=== PATIENT | male | born 1945 | race Caucasian/White ===

== ENCOUNTER 2019-10-25 09:06 | Inpatient (IN) | payer MEDICARE, MEDICAID ==
[~2019-10-25] VITALS: Ht 172.7 cm; Wt 82.0 kg
[2019-10-25 10:32] LABS: Basophils # (auto) 0 10 ^3/uL (0-0.2); Basophils % (auto) 0.3 % (0.0-2.0); Eosinophils # (auto) 0 10 ^3/uL (0-0.8); Hematocrit 42.5 % (41.0-53.0); Hemoglobin 13.4 g/dL (13.5-17.5); Lymphocytes # (auto) 1.1 10 ^3/uL (0.4-5.4); Lymphocytes % (auto) 9.8 % (10.0-50.0); Mean Corpuscular Hemoglobin 28.3 pg (28.0-32.0); Mean Corpuscular Hgb Conc. 31.5 g/dL (32.0-36.0); Mean Corpuscular Volume 89.9 fL (80.0-100.0); Monocytes # (auto) 0.6 10 ^3/uL (0-1.3); Monocytes % (auto) 5.4 % (0.0-12.0); Neutrophils # (auto) 9.8 10 ^3/uL (1.6-8.6); Neutrophils % (auto) 84.5 % (37.0-80.0); Nucleated Red Blood Cells % 0.2 %; Platelet Count (auto) 235 10^3/uL (140-450); Red Blood Cells 4.73 10^6/uL (4.5-5.90); Red Cell Distribution Width 15.7 % (11.8-14.3); White Blood Cell 11.6 10^3/uL (4.4-10.8)
[2019-10-25] MEDS ORDERED: SODIUM CHLORIDE 0.9% 1,000 ML IVB ONE (10:33)
[2019-10-25] MEDS ORDERED: SODIUM CHLORIDE 0.9% 1,000 ML IV ONE (10:33)
[2019-10-25] MEDS ORDERED: DOXYCYCLINE 100MG/250ML 250 ML IV ONE (10:45)
[2019-10-25] MEDS ORDERED: DexAMETHasone SOD PHOS 4 MG/1ML SDV INJ IV ONE (10:45)
[2019-10-25] MEDS ORDERED: cefTRIAXone 1GM/50ML D5W 50 ML IV ONE (10:45)
[2019-10-25 10:49] LABS: INR 1.04 (0.9-1.15); Partial Thromboplastin Time 29.3 sec (23.64-32.05)
[2019-10-25 11:22] LABS: Potassium 4.7 mmol/L (3.5-5.1)
[2019-10-25 11:23] LABS: Urine Amorphous Crystal FEW /hpf (None Seen); Urine Bacteria NONE SEEN /hpf (None Seen); Urine Blood 2+ /uL (Negative); Urine WBC 21 /hpf (0 - 3)
[2019-10-25 11:36] LABS: Albumin 1.9 g/dL (3.4-5.0); BUN/Creatinine Ratio 22.3; Bilirubin, Total 0.4 mg/dL (0.2-1.0); Calcium 8.2 mg/dL (8.5-10.1); Total Protein 7.4 g/dL (6.4-8.2)
[2019-10-25] MEDS ORDERED: ENOXAPARIN SOD 60 MG/0.6 ML SYRINGE SC ONE (13:45)
[2019-10-25] MEDS ORDERED: NITROGLYCERIN 0.4 MG SL TAB SL PRN (15:45)
[2019-10-25] MEDS ORDERED: MORPHINE SULF INJ 2 MG/ML SYRINGE 1ML IV PRN (15:45)
[2019-10-25] MEDS ORDERED: ONDANSETRON HCL 4 MG/2 ML VIAL IV PRN (15:45)
[2019-10-25] MEDS: SODIUM CHLORIDE 0.9% 1,000 ML IV SCH (16:17)
[2019-10-25] MEDS ORDERED: AMIODARONE 450mg/250ml AE 250 ML IV SCH (17:40)
[2019-10-25] MEDS ORDERED: ENOXAPARIN SOD 40 MG/0.4 ML SYRINGE SC ONE (19:00)
[2019-10-25] MEDS: PIPERACILLIN-TAZOB 3.375GM 100 ML IV SCH (19:00)
[2019-10-25] MEDS ORDERED: INSLANTI SC (19:49)
[2019-10-25] MEDS ORDERED: CARB25TA75 PO (19:49)
[2019-10-25] MEDS ORDERED: INSU70IN3 SC (19:49)
[2019-10-25] MEDS ORDERED: SELE5TAB4 PO (19:49)
[2019-10-25] MEDS ORDERED: PANT40T PO (19:49)
[2019-10-25] MEDS ORDERED: SIMV-8 PO (19:49)
[2019-10-25] MEDS ORDERED: INSU100I49 SC (19:49)
[2019-10-25] MEDS ORDERED: LISI-275 PO (19:49)
[2019-10-25] MEDS ORDERED: METO25TA93 PO (19:49)
[2019-10-25] MEDS ORDERED: GLIP10TA16 PO (19:49)
[2019-10-26] VITALS (66 sets, daily range): BP systolic 113–141; BP diastolic 50–88
[2019-10-26] MEDS: PIPERACILLIN-TAZOB 3.375GM 100 ML IV SCH ×4 (00:49→18:34)
[2019-10-26] MEDS: AMIODARONE 450mg/250ml AE 250 ML IV SCH ×2 (01:06→16:08)
--- NOTE | 2019-10-26 03:30 | NUR ---
Arrival Note Received pt from ER via gurney. Transferred to bed with full assist. Pt on non rebreather at 15lpm. Saturations at 96%. COVID positive. All isolation precautions in place. Pt alert and oriented times 2-3. SOB noted. Full assessment done, see interventions. Pt infusing amio gtt at .5mg/min. NSR noted on bedside monitor. Blanchable redness noted to sacrum, optifoam in place. Two small open pressure areas noted on right buttocks. Pictures taken and optifoam placed over with barrier cream. Call light within reach. Pt in full view of RN. Unable to obtain most admission assessment as pt confused.
--- NOTE | 2019-10-26 07:24 | NUR ---
Report given to BRIANNA Puri to assume care
--- NOTE | 2019-10-26 07:25 | NUR ---
REPORT REPORT RECEIVED FROM FRANCESCA RNJONAH. CHECKED ON PT THROUGH THE SLIDING GLASS DOORS. PT IS IN ISOLATION FOR + COVID. CURRENTLY ON NRB MASK AT 15 L/M WITH VSS. CONTINUE TO MONITOR.
[2019-10-26 08:24] LABS: Basophils # (auto) 0 10 ^3/uL (0-0.2); Basophils % (auto) 0.1 % (0.0-2.0); Eosinophils # (auto) 0 10 ^3/uL (0-0.8); Hematocrit 38.9 % (41.0-53.0); Hemoglobin 12.3 g/dL (13.5-17.5); Lymphocytes # (auto) 0.5 10 ^3/uL (0.4-5.4); Lymphocytes % (auto) 2.6 % (10.0-50.0); Mean Corpuscular Hemoglobin 28.6 pg (28.0-32.0); Mean Corpuscular Hgb Conc. 31.7 g/dL (32.0-36.0); Mean Corpuscular Volume 90.3 fL (80.0-100.0); Monocytes # (auto) 0.4 10 ^3/uL (0-1.3); Monocytes % (auto) 2.5 % (0.0-12.0); Neutrophils # (auto) 17.4 10 ^3/uL (1.6-8.6); Neutrophils % (auto) 94.8 % (37.0-80.0); Platelet Count (auto) 224 10^3/uL (140-450); Red Blood Cells 4.31 10^6/uL (4.5-5.90); Red Cell Distribution Width 15.6 % (11.8-14.3); White Blood Cell 18.3 10^3/uL (4.4-10.8)
--- NOTE | 2019-10-26 08:35 | NUR ---
ASSESSMENT PT IN ISOLATION FOR + COVID. PT RESTING IN BED, OPENS EYES TO NAME. A/O TO PERSON, AND "IN THE [place]". ABLE TO FOLLOW SOME SIMPLE COMMANDS. 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 LUNGS CLEAR AND VERY DIMINISHED THROUGHOUT. O2 AT 15 L VIA NRB MASK WITH O2 SAT OF 94% AND RR 31. PT STATES HE DOES NOT FEEL SOB. TELE SR 73. PALPABLE PULSES TO ALL EXTREMITIES. SCDS APPLIED TO BLE. PT WITH BLANCHABLE REDNESS NOTED TO LEFT HEEL AND RIGHT OUTER ANKLE, ALSO TO SACRUM AND RIGHT BUTTOCK WITH 2 SMALL OPEN AREAS TO RIGHT INNER BUTTOCK. OPTIFOAM DRESSING IN PLACE TO SACRUM AND RIGHT BUTTOCK. PT TURNED FOR COMFORT. IVF TO RIGHT HAND AND UPPER RIGHT FOREARM IVS, #20S AND SITES BENIGN. BED IN LOW POSITION , RAILS UP X4 AND BED ALARM ON FOR PT SAFETY. CONTINUE TO MONITOR.
[2019-10-26 08:48] LABS: Albumin 1.7 g/dL (3.4-5.0); Calcium 8.1 mg/dL (8.5-10.1); Potassium 4.8 mmol/L (3.5-5.1)
[2019-10-26 08:53] LABS: BUN/Creatinine Ratio 24.8; Total Protein 6.7 g/dL (6.4-8.2)
[2019-10-26 09:08] LABS: Bilirubin, Total 0.4 mg/dL (0.2-1.0)
--- NOTE | 2019-10-26 09:28 | NUR ---
FAMILY/PHONE RECEIVED A PHONE CALL FROM PT'S DAUGHTER, CONSUELO. AFTER VERIFYING PASSWORD, [id number], I UPDATED HER ON THE PT'S CURRENT CONDITION , PO, AND ANSWERED HER QUESTIONS. OBTAINED HER PHONE NUMBER AND WILL ASK MD Ramos CALL HER.
--- NOTE | 2019-10-26 11:14 | NUR ---
WOUND CARE NOTE: Wound care in to see patient per wound care request regarding multiple skin integrity issue that are noted present on admission. Bedside nurse took photograph of patient's wounds upon admission for reference. Patient is 74 years old male admitted for Sepsis, Poss CoVid. Patient is resting in ICU bed in Rm. 106. Patient is awake, alert and able to follow direction. Patient is in no stated pain at this time,however mild pain upon turning using [place] Faces pain Scale. He needs assistance in turning and repositioning and his Fabián score is 12. Skin/wound assessment done with the assistance of patient's nurse, BRIANNA Puri. Two small (0.5x0.5cm) open partial thickness wounds noted to patient's Rt buttock, sacral has slow to therese redness. Wounds are consistent with Stage 2 pressure injuries. Patient is incontinent and passed moderate amount of pasty stools, kirsten care given, applied Z Guard cream and covered sacrum with Opti foam gentle dressing. Patient's Lt heel noted with dry peeling skin and slow to therese redness (Stage 1 pressure injury). Dry scabbed abrasions noted to his L milton, L medial ankle and Rt. lateral ankle; area is clean and dry, left open to air. Patient tolerated, repositioned patient for comfort facing his Rt side, re distributed pressure points with pillows. BRIANNA Puri at bedside. RECOMMENDATION: Nursing to continue with BID/PRN cleaning and application of Z Guard cream to sacral, buttocks per MD order, Dietary consult, frequent turning and repositioning schedule as condition permits, redistribute pressure points with pillows,frequent kirsten care/check, keep clean and dry, elevate heels on pillows, continue monitoring by wound care while patient is hospitalized. Addendum: 10/26/19 at 1457 by Dianne Redd RN Amended: Links added.
[2019-10-26] MEDS: DexAMETHasone SOD PHOS 4 MG/1ML SDV INJ IV SCH (12:21)
--- NOTE | 2019-10-26 14:30 | NUR ---
REPOSITIONED PT TO HIS RIGHT SIDE. WAS INCONTINENT OF MODERATE AMOUNT OF SOFT BROWN BM. JAZZ CARE GIVEN , Z GUARD CREAM APPLIED TO SCROTUM AND BUTTOCKS. PT DOES NOT WANT TO EAT AT THIS TIME. BED ALARM ON FOR PT SAFETY.CONTINUE TO MONITOR.
--- NOTE | 2019-10-26 15:55 | NUR ---
AXILLARY TEMP OF 100.6. APPLIED ICE PACKS UNDER BOTH ARMS.
--- NOTE | 2019-10-26 16:00 | NUR ---
TURNED PT TO HIS LEFT SIDE. PT NOW ON HI FLOW O2 AT 70% FIO2 AND 45 L FLOW. [id number]%. CONTINUE TO MONITOR. Addendum: 10/26/19 at 1618 by Khushi Kahn RN AXILLARY TEMP OF 100.6. APPLIED ICE PACKS UNDER BOTH ARMS. WILL NOTIFY TO SEE IF HE WANTS ANY TYLENOL OR CULTURES.
[2019-10-26] MEDS: SODIUM CHLORIDE 0.9% 1,000 ML IV SCH ×2 (16:45→18:34)
--- NOTE | 2019-10-26 18:30 | NUR ---
PT WITH ORAL TEMP OF 99.9. ICE PACKS REMAIN IN PLACE UNDER ARMS. NO RETURN CALL FROM DR SANTILLAN REGARDING TEMPERATURE..
--- NOTE | 2019-10-26 19:17 | NUR ---
REPORT REPORT GIVEN TO JONAH MA RN.
--- NOTE | 2019-10-26 19:30 | NUR ---
Opening shift note Received pt on high flow on 45l and 70% FIO2. Full assessment done, see interventions. Patient alert and oriented times three. Pt states he isn't having any pain but will express pain when touched. Skin assessment done, see interventions. Pt in full view of RN.
--- NOTE | 2019-10-26 19:30 | NUR ---
RECEIVED PHONE ORDER FOR TYLENOL PRN AND CULTURES FOR ELEVATED TEMP. ORDERS PLACED AND NOTIFIED NIGHT JONAH REED.
[2019-10-26] MEDS: ENOXAPARIN SOD 80 MG/0.8ML SYRINGE SC SCH (22:00)
[2019-10-27] VITALS (61 sets, daily range): BP systolic 115–170; BP diastolic 49–119
[2019-10-27] MEDS: MEROPENEM 1GM IVPB 100 ML IV SCH ×2 (04:16→15:37)
[2019-10-27 04:51] LABS: Basophils # (auto) 0 10 ^3/uL (0-0.2); Eosinophils # (auto) 0 10 ^3/uL (0-0.8); Hematocrit 40.5 % (41.0-53.0); Hemoglobin 12.6 g/dL (13.5-17.5); Lymphocytes # (auto) 0.4 10 ^3/uL (0.4-5.4); Lymphocytes % (auto) 2.3 % (10.0-50.0); Mean Corpuscular Hemoglobin 28.2 pg (28.0-32.0); Mean Corpuscular Volume 91.1 fL (80.0-100.0); Monocytes # (auto) 0.4 10 ^3/uL (0-1.3); Monocytes % (auto) 2.7 % (0.0-12.0); Neutrophils # (auto) 15.1 10 ^3/uL (1.6-8.6); Platelet Count (auto) 235 10^3/uL (140-450); Red Blood Cells 4.45 10^6/uL (4.5-5.90); Red Cell Distribution Width 15.4 % (11.8-14.3)
[2019-10-27 05:32] LABS: Calcium 8.5 mg/dL (8.5-10.1)
[2019-10-27 05:38] LABS: Albumin 1.7 g/dL (3.4-5.0); BUN/Creatinine Ratio 24.5; Bilirubin, Total 0.4 mg/dL (0.2-1.0); Total Protein 6.8 g/dL (6.4-8.2)
--- NOTE | 2019-10-27 05:56 | NUR ---
Left message with Dr. Lares regarding blood sugar. Awaiting call back
[2019-10-27] MEDS ORDERED: INSULIN LANTUS (GLARGINE) 1 /0.01ml (100units/ml) SC ONE ×2 (08:15→08:24)
[2019-10-27] MEDS ORDERED: DEXTROSE (50%) 50ML SYRG IV PRN (08:15)
[2019-10-27] MEDS: AMIODARONE 450mg/250ml AE 250 ML IV SCH ×2 (08:20→20:40)
--- NOTE | 2019-10-27 09:00 | NUR ---
DR. AGUILAR Provider/Hospitalist at bedside.
[2019-10-27] MEDS: SODIUM CHLORIDE 0.9% 1,000 ML IV SCH ×2 (10:00→17:45)
--- NOTE | 2019-10-27 10:30 | NUR ---
Respiratory note: TITRATED FIO2 TO 60%, BRIANNA BARRON.
[2019-10-27] MEDS: DexAMETHasone SOD PHOS 4 MG/1ML SDV INJ IV SCH (10:33)
--- NOTE | 2019-10-27 10:35 | NUR ---
DR. SANTILLAN Provider/Hospitalist at bedside.
[2019-10-27] MEDS: ACCU-CHEK COMFORT CURVE STRIP VI SCH ×3 (11:30→22:00)
--- NOTE | 2019-10-27 11:30 | NUR ---
ACCUCHECK DONE AND BS-431. REPEATED RIGHT AWAY WITH BS-443. GAVE PT. REGULAR INSULIN 20 UNITS SQ PER AGGRESSIVE SLIDING SCALE ORDERED.
[2019-10-27] MEDS: InsuLIN REG 1unit/0.01ml Soln (100units/ml) SC SCH ×3 (11:39→22:55)
[2019-10-27 12:51] LABS: Calcium 8.7 mg/dL (8.5-10.1); Potassium 4.7 mmol/L (3.5-5.1)
[2019-10-27 12:53] LABS: BUN/Creatinine Ratio 25.1
--- NOTE | 2019-10-27 16:00 | NUR ---
PT. HAS BEEN RESTING WITH EYES CLOSED. NO SIGNS OF DISTRESS OR DISCOMFORT.
--- NOTE | 2019-10-27 19:50 | NUR ---
PAGEYadira CURRY REGARDING HIGH BLOOD PLEASURE SYSTOLIC BLOOD PLEASURE GOES ABOVE 150'S PT TAKING BP MEDICATIONS AT HOME
--- NOTE | 2019-10-27 20:00 | NUR ---
CORRECTION IN TITLE PAGED REGARDING HIGH BLOOD *PRESSURE
--- NOTE | 2019-10-27 20:30 | NUR ---
COOLING MEASURES - TEMP 100.4 ICE PACKS BILATERAL AXILLA TYLENOL
--- NOTE | 2019-10-27 20:40 | NUR ---
HOLDING AMIODARONE PER REPORT PER DAY SHIFT RN AMIODARONE WAS STOPPED AT 1000
[2019-10-27] MEDS: ACETAMINOPHEN 500 MG TAB PO PRN (20:56)
--- NOTE | 2019-10-27 21:22 | NUR ---
CARES PT HAD SMALL SOFT BOWEL MOVEMENT, PARTIAL BED LINEN CHANGE, APPLIED OPTIFOAM TO HEELS BILATERALLY
[2019-10-27] MEDS: ENOXAPARIN SOD 80 MG/0.8ML SYRINGE SC SCH (22:00)
[2019-10-27] MEDS: MORPHINE SULF INJ 2 MG/ML SYRINGE 1ML IV PRN (23:43)
--- NOTE | 2019-10-27 23:59 | NUR ---
INSERTED SECOND IV IV access obtained, via clean sterile technique by inserting 22 gauge catheter at LEFT HAND after 2 attempt(s). IV secured properly. No trauma to site. Patient tolerated well.
[2019-10-28] VITALS (40 sets, daily range): BP systolic 123–173; BP diastolic 56–110
--- NOTE | 2019-10-28 04:10 | NUR ---
CARES FULL BED LINEN CHANGE, PARTIAL BED BATH. OPTIFOAM APPLIED TO SACRAL AREA.
[2019-10-28] MEDS: MEROPENEM 1GM IVPB 100 ML IV SCH ×2 (04:19→15:46)
[2019-10-28] MEDS: SODIUM CHLORIDE 0.9% 1,000 ML IV SCH ×2 (04:20→17:30)
[2019-10-28 04:58] LABS: Alanine Aminotransferase 9 U/L (16-61); Albumin 1.5 g/dL (3.4-5.0); Anion Gap 6 (5-15); Aspartate Aminotransferase 21 U/L (15-37); BUN/Creatinine Ratio 30.7; Blood Urea Nitrogen 50 mg/dL (7-18); Calcium 8.6 mg/dL (8.5-10.1); Carbon Dioxide 21 mmol/L (21-32); Chloride 122 mmol/L (98-107); GFR African American 53 mL/min; GFR Non-African American 44 mL/min; Glucose 193 mg/dL (74-106); Potassium 4.7 mmol/L (3.5-5.1); Sodium 149 mmol/L (136-145)
[2019-10-28 05:01] LABS: Alkaline Phosphatase 57 U/L (45-117); Bilirubin, Total 0.2 mg/dL (0.2-1.0); Total Protein 6.8 g/dL (6.4-8.2)
[2019-10-28] MEDS: InsuLIN REG 1unit/0.01ml Soln (100units/ml) SC SCH ×4 (06:05→21:45)
[2019-10-28] MEDS: ACCU-CHEK COMFORT CURVE STRIP VI SCH ×4 (06:19→22:09)
--- NOTE | 2019-10-28 08:08 | NUR ---
PT. PULLED OFF HI FLOW, O2 SATS DECREASED TO 76% WITH GOOD PLETH. RR 20'S. POLLY, RT CAME IN RM. TO SEE PT., PLACED HI FLOW 45 LITERS BACK ON PT. AND INCREASED FIO2-80% FROM 70%. TOOK SEVERAL MINUTES FOR O2 SATS TO INCREASE TO LOW 90'S. REINFORCED TO PT. IMPORTANCE OF LEAVING 02 ON. PLACED MITTEN ON RT. HAND, NOT TIED TO PREVENT PULLING OF TUBING.
[2019-10-28] MEDS: DexAMETHasone SOD PHOS 4 MG/1ML SDV INJ IV SCH (10:15)
[2019-10-28] MEDS: AMIODARONE 450mg/250ml AE 250 ML IV SCH (10:15)
--- NOTE | 2019-10-28 10:53 | NUR ---
Nutrition Assessment Notes please see attached link for complete assessment Est energy needs BW 81 [id number] kcal (23-25 kcal/kg BW) Est protein 65-81g (0.8-1.0g/kg elevated RFTs) Will reassess prn. Addendum: 10/28/19 at [address] Amended: Links added.
[2019-10-28 11:21] LABS: Basophils # (auto) 0 10 ^3/uL (0-0.2); Basophils % (auto) 0.2 % (0.0-2.0); Eosinophils # (auto) 0 10 ^3/uL (0-0.8); Hematocrit 39.8 % (41.0-53.0); Hemoglobin 12.5 g/dL (13.5-17.5); Lymphocytes # (auto) 0.4 10 ^3/uL (0.4-5.4); Lymphocytes % (auto) 2.7 % (10.0-50.0); Mean Corpuscular Hgb Conc. 31.3 g/dL (32.0-36.0); Mean Corpuscular Volume 89.4 fL (80.0-100.0); Monocytes # (auto) 0.8 10 ^3/uL (0-1.3); Monocytes % (auto) 5.2 % (0.0-12.0); Neutrophils # (auto) 13.6 10 ^3/uL (1.6-8.6); Neutrophils % (auto) 91.9 % (37.0-80.0); Platelet Count (auto) 269 10^3/uL (140-450); Red Blood Cells 4.46 10^6/uL (4.5-5.90); Red Cell Distribution Width 15.3 % (11.8-14.3); White Blood Cell 14.8 10^3/uL (4.4-10.8)
--- NOTE | 2019-10-28 12:15 | NUR ---
POLLY RT DECREASED FIO2 ON HI FLOW TO 75%. O2 SATS MID 90'S. NO SIGNS OF RESP. DISTRESS.
--- NOTE | 2019-10-28 14:25 | NUR ---
DR. KAHN Provider/Hospitalist at bedside. NEW ORDERS RECEIVED.
--- NOTE | 2019-10-28 17:00 | NUR ---
PT. RESTING WITH EYES CLOSED. NO SIGNS OF DISTRESS OR DISCOMFORT.
--- NOTE | 2019-10-28 20:00 | NUR ---
OPENING NOTE PT IS ON HIGH FLOW NC, RR 28, SPO2 88%, BREATHING THROUGH HIS MOUTH, INSTRUCTED PT TO BREATH THROUGH NOSE. PT IS ALERT TO HIMSELF, PLACE AND YEAR, REPORTS GENERALIZED PAIN. PT IS SINUS TACHY WITH PVC'S, TEMP 99.5, WILL APPLY COOLING MEASURES. WILL ENCOURAGE PT DO DRINK ONE CUP OF WATER EVERY TWO HOURS TOLERATED. DEAN DRAINING DOWN THE GRAVITY, FREE OF KINKS. BED RAILS ARE UP X4 FOR SAFETY, BED IN LOWEST POSITION. CALL LIGHT WITHIN REACH INSTRUCTED ON HOW TO USE IT, PT DEMONSTRATED ON HOW TO USE IT WITH HIS RIGHT HAND. LEFT ARM IS EXTREMELY WEEK WITH MINIMUM TO NO MOVEMENT. PT IS IN ISO ROOM FOR COVID. WILL MONITOR PT EVERY 15 MIN AND NEEDED.
--- NOTE | 2019-10-28 20:06 | NUR ---
SPOKE WITH FAMILY SPOKE WITH SABRINA MARTINEZ (BROTHER IN LAW), PROVIDED PASSWORD, UPDATED ON PATIENTS STATUS AND POC, ALL QUESTIONS AND CONCERNS ADDRESSED.
--- NOTE | 2019-10-28 20:22 | NUR ---
COOLING MEASURES TEMP 99.5 AX APPLIED ICE BACK BEHIND NECK TURN ON FAN
[2019-10-28] MEDS: ENOXAPARIN SOD 80 MG/0.8ML SYRINGE SC SCH (22:09)
[2019-10-28] MEDS: MORPHINE SULF INJ 2 MG/ML SYRINGE 1ML IV PRN (22:19)
[2019-10-29] VITALS (30 sets, daily range): BP systolic 131–183; BP diastolic 51–103
--- NOTE | 2019-10-29 01:00 | NUR ---
PAGED REGARDING HIGH NA AND BP CALLED BACK RECEIVED NEW ORDERS
[2019-10-29] MEDS: D5W/SOD CHL 0.45% 1,000 ML IV SCH ×2 (01:15→16:41)
[2019-10-29] MEDS ORDERED: LISINOPRIL 20 MG TAB PO ONE (01:15)
--- NOTE | 2019-10-29 03:20 | NUR ---
PATIENT REFUSING CARES REFUSING BED LINEN CHANGE, USES FOUL LANGUAGE. WAS ABLE TO CHANGE PILLOW CASES.
--- NOTE | 2019-10-29 03:50 | NUR ---
PAGED RT PATIENT DESATURATING TO SPO2 86% LUNG SOUNDS: COARSE, WHEEZING BREATHING THROUGH THE MOUTH
[2019-10-29] MEDS: MEROPENEM 1GM IVPB 100 ML IV SCH ×2 (04:26→16:56)
[2019-10-29 04:28] LABS: Basophils # (auto) 0 10 ^3/uL (0-0.2); Basophils % (auto) 0.1 % (0.0-2.0); Eosinophils # (auto) 0 10 ^3/uL (0-0.8); Hematocrit 39.7 % (41.0-53.0); Hemoglobin 12.4 g/dL (13.5-17.5); Lymphocytes # (auto) 0.5 10 ^3/uL (0.4-5.4); Lymphocytes % (auto) 4.1 % (10.0-50.0); Mean Corpuscular Hemoglobin 28.4 pg (28.0-32.0); Mean Corpuscular Hgb Conc. 31.3 g/dL (32.0-36.0); Mean Corpuscular Volume 90.5 fL (80.0-100.0); Neutrophils # (auto) 11.4 10 ^3/uL (1.6-8.6); Neutrophils % (auto) 87.8 % (37.0-80.0); Nucleated Red Blood Cells % 0.1 %; Platelet Count (auto) 278 10^3/uL (140-450); Red Blood Cells 4.39 10^6/uL (4.5-5.90); Red Cell Distribution Width 15.4 % (11.8-14.3); White Blood Cell 12.9 10^3/uL (4.4-10.8)
[2019-10-29 04:45] LABS: Albumin 1.6 g/dL (3.4-5.0); Calcium 8.5 mg/dL (8.5-10.1); Potassium 4.6 mmol/L (3.5-5.1)
[2019-10-29 04:48] LABS: Bilirubin, Total 0.3 mg/dL (0.2-1.0); Total Protein 6.7 g/dL (6.4-8.2)
--- NOTE | 2019-10-29 04:50 | NUR ---
UNABLE TO MAKE CONTACT WITH 'S FOR PATIENTS HIGH BP AND ELEVATED SODIUM JACQUE'S OFFICE IS CLOSED, NO ANSWER, LEFT MESSAGE NO CONTACT FOR WYATT PEREZ MD, [employer] DOES NOT HAVE CONTACT Addendum: 10/29/19 at 0739 by SALENA DIAZ RN RN ADDITIONAL INFORMATION: REPLACED BY [facility] [employer] DOES NOT HAVE WYATT CURRY CONTACT INFORMATION
[2019-10-29] MEDS: MORPHINE SULF INJ 2 MG/ML SYRINGE 1ML IV PRN ×3 (05:00→22:42)
[2019-10-29] MEDS: InsuLIN REG 1unit/0.01ml Soln (100units/ml) SC SCH ×4 (05:52→22:00)
[2019-10-29] MEDS: ACCU-CHEK COMFORT CURVE STRIP VI SCH ×4 (06:23→22:00)
--- NOTE | 2019-10-29 07:00 | NUR ---
PAGED JACQUE MORGAN MD REGARDING HIGH BP AND HIGH Na LEFT MESSAGE TO CABLE ASSEMBLER AT JACQUE'S OFFICE
--- NOTE | 2019-10-29 08:15 | NUR ---
INITIAL ASSESSMENT: Patient agitated moving around in bed, hi-juan cannula out of nose due to trashing of head. Patient states that he is uncomfortable and in pain, pain is generalized 8/10. Partial linen change provided, patient repositioned and to be medicated for pain as per orders. Current hi-juan settings 45L and 75% FiO2. Assessments completed and documented in appropriate flow sheets.
[2019-10-29] MEDS: LISINOPRIL 20 MG TAB PO SCH (12:00)
[2019-10-29] MEDS: DexAMETHasone SOD PHOS 4 MG/1ML SDV INJ IV SCH (12:00)
--- NOTE | 2019-10-29 19:40 | NUR ---
PAGED DR SANTILLAN REGARDING HIGH BLOOD PRESSURE, HIGH BLOOD SUGAR AND SODIUM LEVELS.
--- NOTE | 2019-10-29 19:55 | NUR ---
DR. SANTILLAN CALLED BACK RECEIVED NEW ORDERS CONSULTING DR. ELLER (NEPHRO)
[2019-10-29] MEDS: SOD CHL 0.45% 1,000 ML IV SCH (22:20)
[2019-10-29] MEDS: hydrALAZINE HCL 20 MG/ML VL IV PRN (22:32)
[2019-10-29] MEDS: ENOXAPARIN SOD 80 MG/0.8ML SYRINGE SC SCH (22:48)
--- NOTE | 2019-10-29 23:00 | NUR ---
IV removal IV DC'd with clean sterile technique, catheter fully intact. Pressure dressing applied to site. Patient tolerated well. REMOVED 20G FROM LEFT ARM.
--- NOTE | 2019-10-29 23:10 | NUR ---
IV insertion IV access obtained, via clean sterile technique by inserting gauge catheter at 22 after 1 attempt. IV secured properly. No trauma to site. Patient tolerated well.
[2019-10-30] VITALS (20 sets, daily range): BP systolic 125–167; BP diastolic 67–92
--- NOTE | 2019-10-30 | NUR ---
CARES PARTIAL BED LINEN CHANGE, PARTIAL BED BATH
--- NOTE | 2019-10-30 00:05 | NUR ---
PT REMOVING HIGH FLOW NC PLACED IT BACK ON EDUCATED PATIENT NOT TO REMOVED, PT VERBALIZED UNDERSTANDING. PT TOSSING IN BED.
[2019-10-30] MEDS: MORPHINE SULF INJ 2 MG/ML SYRINGE 1ML IV PRN ×2 (03:12→08:52)
[2019-10-30] MEDS: MEROPENEM 1GM IVPB 100 ML IV SCH ×2 (03:41→15:44)
--- NOTE | 2019-10-30 04:20 | NUR ---
PLACED MITTEN BACK ON RIGHT ARM PT KEEPS TAKING OFF HIGH FLOW NC, DESATURATES LOW 70%, PT WAS EDUCATED MULTIPLE TIMES NOT TO TAKE IT OFF, PT VERBALIZED UNDERSTANDING BUT KEEP ON TAKING IT OFF, MITTEN WAS PLACED ON RIGHT HAND.
[2019-10-30] MEDS: hydrALAZINE HCL 20 MG/ML VL IV PRN (06:10)
[2019-10-30] MEDS: ACCU-CHEK COMFORT CURVE STRIP VI SCH ×4 (06:10→22:00)
[2019-10-30] MEDS: InsuLIN REG 1unit/0.01ml Soln (100units/ml) SC SCH ×4 (06:11→23:19)
[2019-10-30 07:30] LABS: Basophils # (auto) 0 10 ^3/uL (0-0.2); Basophils % (auto) 0.3 % (0.0-2.0); Eosinophils # (auto) 0 10 ^3/uL (0-0.8); Hematocrit 41.8 % (41.0-53.0); Hemoglobin 13.2 g/dL (13.5-17.5); Lymphocytes # (auto) 0.7 10 ^3/uL (0.4-5.4); Lymphocytes % (auto) 5.7 % (10.0-50.0); Mean Corpuscular Hemoglobin 28.3 pg (28.0-32.0); Mean Corpuscular Hgb Conc. 31.7 g/dL (32.0-36.0); Mean Corpuscular Volume 89.5 fL (80.0-100.0); Monocytes # (auto) 1.2 10 ^3/uL (0-1.3); Monocytes % (auto) 9.8 % (0.0-12.0); Neutrophils # (auto) 10.3 10 ^3/uL (1.6-8.6); Neutrophils % (auto) 84.2 % (37.0-80.0); Platelet Count (auto) 257 10^3/uL (140-450); Red Blood Cells 4.67 10^6/uL (4.5-5.90); Red Cell Distribution Width 15.1 % (11.8-14.3); White Blood Cell 12.2 10^3/uL (4.4-10.8)
[2019-10-30 07:52] LABS: Potassium 4.1 mmol/L (3.5-5.1)
[2019-10-30 07:54] LABS: BUN/Creatinine Ratio 30.9
[2019-10-30] MEDS: SOD CHL 0.45% 1,000 ML IV SCH (08:51)
[2019-10-30] MEDS: LISINOPRIL 20 MG TAB PO SCH (08:51)
[2019-10-30] MEDS: DexAMETHasone SOD PHOS 4 MG/1ML SDV INJ IV SCH (08:51)
--- NOTE | 2019-10-30 10:20 | NUR ---
DR. MOORE AT BEDSIDE NO NEW ORDERS RECEIVED. UPDATED MD ON PT'S CURRENT STATUS,LABS AND POC FOR TODAY. CONTINUE CARE.
--- NOTE | 2019-10-30 10:57 | NUR ---
OXYGENATION R.T. JULIETTE, INCREASED HIGH FLOW TO 50 LITERS OF O2 AT 80% FIO2 AT THIS TIME. CURRENT O2 SATS NOW 91-93%. CONTINUE CARE.
--- NOTE | 2019-10-30 14:42 | NUR ---
Respiratory note: TITRATED FIO2 TO 60% AND FLOW TO 5L. PT SITTING UP IN BED AND TOLERATING WELL. RN NOTIFY OF CHANGE.
--- NOTE | 2019-10-30 16:57 | NUR ---
DR. MCKEON AT BEDSIDE: ORDERS MD UPDATED ON PT'S CURRENT STATUS, OXYGEN REQUIREMENTS AT THIS TIME AND CURRENT POC. ORDERS TO BE GIVEN AND WILL BE CARRIED OUT. CONTINUE CARE.
[2019-10-30] MEDS: ENOXAPARIN SOD 80 MG/0.8ML SYRINGE SC SCH (22:00)
[2019-10-30] MEDS: AMIODARONE HCL 200 MG TAB PO SCH (22:00)
[2019-10-31] VITALS (22 sets, daily range): BP systolic 116–174; BP diastolic 55–100
--- NOTE | 2019-10-31 02:25 | NUR ---
Respiratory note: INCREASED FIO2 TO 85%, 55L. RN INFORMED
[2019-10-31] MEDS: MEROPENEM 1GM IVPB 100 ML IV SCH ×3 (04:00→21:15)
[2019-10-31 05:36] LABS: Albumin 1.8 g/dL (3.4-5.0); Calcium 8.9 mg/dL (8.5-10.1); Potassium 4.1 mmol/L (3.5-5.1)
[2019-10-31 05:39] LABS: BUN/Creatinine Ratio 31.5; Bilirubin, Total 0.5 mg/dL (0.2-1.0); Total Protein 6.3 g/dL (6.4-8.2)
[2019-10-31] MEDS: InsuLIN REG 1unit/0.01ml Soln (100units/ml) SC SCH ×4 (06:13→21:37)
[2019-10-31] MEDS: SOD CHL 0.45% 1,000 ML IV SCH (06:13)
[2019-10-31] MEDS: ACCU-CHEK COMFORT CURVE STRIP VI SCH ×4 (06:14→21:54)
--- NOTE | 2019-10-31 06:20 | NUR ---
Respiratory note: INCREASED FIO2 TO 100%,RN INFORMED.
--- NOTE | 2019-10-31 07:17 | NUR ---
REPORT RECEIVED FROM [employer] RN
[2019-10-31 09:26] LABS: Protein, Urine 243.1 mg/dL (0.0-11.9)
[2019-10-31 09:29] LABS: INR 1.26 (0.9-1.15); Partial Thromboplastin Time 28.4 sec (23.64-32.05)
--- NOTE | 2019-10-31 09:45 | NUR ---
ORAL MEDICATIONS ATTEMPTED TO GIVE PATIENT ORAL MEDICATIONS. PATIENT COUGHED UPON ADMINISTRATION, PATIENT SUCTIONED OF RESIDUAL ORAL MEDICATIONS. WILL NOTIFY
[2019-10-31] MEDS: LISINOPRIL 20 MG TAB PO SCH (10:00)
[2019-10-31] MEDS: AMIODARONE HCL 200 MG TAB PO SCH ×2 (10:00→21:54)
[2019-10-31] MEDS: D5W 5% 1,000 ML IV SCH (10:03)
[2019-10-31] MEDS: DexAMETHasone SOD PHOS 4 MG/1ML SDV INJ IV SCH (10:27)
--- NOTE | 2019-10-31 11:08 | NUR ---
FAMILY DAUGHTER UPDATED ON PATIENT STATUS. ALL QUESTION AND CONCERNS ADDRESSED AT [facility]
--- NOTE | 2019-10-31 11:49 | NUR ---
MITTEN REMOVED FROM RIGHT ARM
--- NOTE | 2019-10-31 14:57 | NUR ---
DR. ROBLES AT BEDSIDE
--- NOTE | 2019-10-31 15:24 | NUR ---
Nutrition Followup Notes Pt wt is 112.0 kg Pt was sleeping with no relatives at bedside when rounded this morning. Pt with a high flow nasal cannula, on a Cardiac diet, appetite is poor aeb ave 18% PO intake over 4 meals. Will continue to monitor PO status, skin status, pertinent labs and weight trends. Will f/u in 2-3 days. Est energy needs BW 81 [id number] kcal (23-25 kcal/kg BW) Est protein 65-81g (0.8-1.0g/kg elevated RFTs) Will reassess prn. LABS: Na 154 H, Gluc 175 H, Alb 1.8 L GI: Pt had 2 BM on 7.09 per RN doc BS: 12 low risk. Refer to wound assessment report for full details. PES: 1) Altered nutrition related lab values r.t current chronic medical condition aeb elev RFT severe hypoalb 2) Inadequte PO intake r.t current medical condition aeb pt`s with COVID and PO recorded < 50% Comments 1) Consider glucerna 1 carton bid if PO continues to be low 2) Refer to CDE on DC 3) Continue current plan of care
--- NOTE | 2019-10-31 15:53 | NUR ---
assessment Patient is a 74 year old female who is confused and Covid positive. Per patients daughter Jo-Ann prior to admission patient was jail at [facility] for the past 4 years. Patients PCP is Dr Jhaveri. Patient has a wheelchair for use at the facility. Per Jo-Ann patient was having shortness of breath and fever and the facility called 911. Per Jo-Ann she prefers for patient to return to [facility] on discharge. I will continue to monitor and follow up as appropriate. Jo-Ann verbalized understanding. Addendum: 10/31/19 at 1556 by Ely BARRIOS Amended: Links added.
--- NOTE | 2019-10-31 16:04 | NUR ---
PARTIAL LINEN CHANGE PERFORMED PATIENT TOLERATED WELL
--- NOTE | 2019-10-31 17:01 | NUR ---
MITTEN PLACED BACK ON RIGHT ARM PATIENT AT RISK FOR PULLING OUT IV LINE
--- NOTE | 2019-10-31 17:51 | NUR ---
DR. SCHNEIDER AT BEDSIDE
--- NOTE | 2019-10-31 19:30 | NUR ---
report received and assumed care; see interventions for assessment; vs stable with exception of pt. increased WOB and sats decreased to 87%-pt. on hiflow with 100% fio2 and 55L flow; will page RT to come to bedside and assess for possible CPAP; pt. is lethargic and unable to answer simple questions; will also have RT obtain ABG; will cont. to monitor.
--- NOTE | 2019-10-31 20:00 | NUR ---
pt. breathing very shallow and sats are decreased to 87% with an increased WOB; R.T. at bedside and CPAP to be initiated and ABG drawn; will cont. to monitor.
--- NOTE | 2019-10-31 21:15 | NUR ---
pt. having decreased volumes on CPAP-will page RT.
--- NOTE | 2019-10-31 21:30 | NUR ---
RT at bedside, and adjusting mask to fit properly and snug as CPAP is having a large leak; will cont. to monitor.
[2019-10-31] MEDS: ENOXAPARIN SOD 120 MG/0.8 ML SYRINGE SC SCH (21:54)
[2019-11-01] VITALS (68 sets, daily range): BP systolic 56–140; BP diastolic 31–84
[2019-11-01] MEDS: D5W 5% 1,000 ML IV SCH (01:00)
[2019-11-01] MEDS: MEROPENEM 1GM IVPB 100 ML IV SCH ×3 (03:59→19:50)
[2019-11-01] MEDS: InsuLIN REG 1unit/0.01ml Soln (100units/ml) SC SCH ×5 (05:52→22:00)
[2019-11-01] MEDS: ACCU-CHEK COMFORT CURVE STRIP VI SCH ×4 (06:00→20:00)
[2019-11-01 06:38] LABS: Albumin 1.9 g/dL (3.4-5.0); Potassium 4.2 mmol/L (3.5-5.1)
[2019-11-01 06:42] LABS: BUN/Creatinine Ratio 31.8; Bilirubin, Total 0.8 mg/dL (0.2-1.0); Total Protein 6.9 g/dL (6.4-8.2)
--- NOTE | 2019-11-01 06:45 | NUR ---
pt. began to desat to 60"s, lips bluish color, and increased WOB with very shallow breaths; paged RT to bedside and RT trouble-shooting CPAP; patient cont. with sats in mid 60's and pt. placed on hi-flow/fio2 at 100%/flow at 70L; pt. sats increased to mid 70's; Gerardo Edmondson NP paged to come to bedside for assessment and possible intubation; Gerardo Edmondson NP at bedside and ABG results showing pAo2= 40; agreed patient needs intubation; pt. prepared for intubation, both RT and Gerardo Edmondson NP placed papers on (+ COVID-19), and etomidate 20mg ivp given and succinylcholine 80mg ivp given, and pt. intubated with #8ETT 26cm at the lip, and pt. tolerated well; pt. ventilator settings are AC 14 TV 400 PEEP 8 and Fio2 100%; suctioned pt. ETT and moderate, thick, yellow secretions both ETT and oropharynx; versed gtt started and will cont. to monitor pt.
--- NOTE | 2019-11-01 06:50 | NUR ---
Called to bedside due to pt O2 desat to 60's while on CPAP. RT Elzbieta already at bedside, adjusted mask for adequate seal, no leak in tubing, settings confirmed, O2 not improving. RT Elzbieta placed pt on high flow NC, 70LPM, FIO2 100%, with increased SPO2 to 73%. ABG drawn, results reported to DARCIE Edmondson. Orders received, prepare for intubation.
[2019-11-01] MEDS ORDERED: ETOMIDATE (2MG/ML) 20ML VIAL IV ONE (07:05)
[2019-11-01] MEDS ORDERED: SUCCINYLCHOLINE CHLORIDE 20 MG/ML 10ML VIAL IV ONE (07:06)
[2019-11-01] MEDS: MIDAZOLAM DRIP 50 mg/50mL 50 ML IV SCH ×4 (07:07→19:58)
[2019-11-01] MEDS ORDERED: MIDAZOLAM DRIP 50 mg/50mL 50 ML IV ONE (07:12)
--- NOTE | 2019-11-01 07:12 | NUR ---
Gerardo Edmondson, DARCIE rx'd succ at 80mg ivp x1 now and etomidate 20mg ivp x1 now-not 200mg succ and 40mg etom.
--- NOTE | 2019-11-01 07:13 | NUR ---
etomidate 20mg ivp and succinylcholine 80mg ivp given.
--- NOTE | 2019-11-01 07:15 | NUR ---
PT INTUBATED BY SOLAR ENERGY ADVISOR STUDENT WITH DARCIE MARQUES AT BEDSIDE. INTUBATED WITH ETT 8.0 AT 26CM, SECURED WITH HOLISTER. POSITIVE COLOR CHANGE ON ETCO2 DETECTOR. PLACED ON VENTILATOR V13 PLUGGED INTO RED OUTLET, ON ORDERED SETTINGS: AC, RR 14, VT 450, PEEP +8, FIO2 100%. BREATH SOUNDS COARSE CRACKLES T/O. SUCTIONED FOR LARGE AMOUNT THICK, TENACIOUS YELLOW SECRETIONS. SPUTUM SAMPLE OBTAINED AND SENT TO LAB. ALARMS SET AND AUDIBLE. PLACED PT ON HEATED WIRE CIRCUIT WITHOUT INCIDENT. PT SEDATED, NO S/S OF DISTRESS. RN AT BEDSIDE.
--- NOTE | 2019-11-01 07:15 | NUR ---
time pt. intubated.
--- NOTE | 2019-11-01 07:45 | NUR ---
REPORT REPORT RECEIVED FROM POLLY REED, CARE ASSUMED. PT RECENTLY INTUBATED. SEDATION RUNNING, WILL CONTINUE TO MONITOR.
--- NOTE | 2019-11-01 08:00 | NUR ---
PAGED PAGED REGARDING HYPOTENSION. BLOOD PRESSURE TRENDING SYSTOLIC 50-60'S. SEDATION DECREASED. AWAITING CALL BACK.
--- NOTE | 2019-11-01 08:08 | NUR ---
PAGED PAGED REGARDING HYPOTENSION AND NEW INTUBATION. AWAITING CALL BACK.
--- NOTE | 2019-11-01 08:15 | NUR ---
PAGED PAGED REGARDING HYPOTENSION. BLOOD PRESSURE CONTINUES TO TREND SYSTOLIC 50-60'S. SEDATION DECREASED. AWAITING CALL BACK.
--- NOTE | 2019-11-01 08:25 | NUR ---
MD RETURNED PAGED AWARE OF LOW TRENDING BLOOD PRESSURE. PT MOVING EXTREMITIES WITH SEDATION BEING DECREASED. ORDERS OBTAINED FOR VASOPRESSOR THERAPY WELL OTHER MEDICATION CHANGES. ORDERS PLACED. WILL NOTIFY MD OF ANY FURTHER CHANGES FROM BASELINE.
[2019-11-01] MEDS: NOREPINEPHRINE 8 MG/250ML KIT 250 ML IV SCH (08:30)
[2019-11-01] MEDS ORDERED: DEXTROSE (50%) 50ML SYRG IV PRN (08:30)
[2019-11-01] MEDS: SOD CHL 0.45% 1,000 ML IV SCH ×3 (08:30→23:00)
--- NOTE | 2019-11-01 08:32 | NUR ---
RETURNED PAGE RETURNED CALL. MD AWARE OF INTUBATION WELL VENTILATOR SETTINGS AND ABG. NEW VENT ORDERS OBTAINED. MD TO ROUND AT BEDSIDE THIS AFTERNOON.
--- NOTE | 2019-11-01 08:45 | NUR ---
INITIAL CONTACT PT OBSERVED RESTING IN BED, INTUBATED ON VENTILATOR. TOLERATING VENTILATION AT THIS TIME. SEDATION OF VERSED. AFEBRILE. PULSES PALPABLE BILATERALLY. SCD'S ON BILATERAL LOWER EXTREMITIES. LUNGS CLEAR, BUT DIMINISHED ANTERIORLY. RESPIRATIONS ARE EVEN AND UNLABORED. BLOOD PRESSURE TRENDING LOW. DEAN CATHETER PATENT, SECURED BELOW BLADDER. SEE SKIN/WOUND ASSESSMENT. ALARMS IN PLACE, BED LOCKED IN LOWEST POSITION, WILL CONTINUE TO MONITOR.
--- NOTE | 2019-11-01 09:00 | NUR ---
s/w pt. daughter and updated her on pt. condition and plan of care; daughter also consented for a central-line placement.
--- NOTE | 2019-11-01 09:00 | NUR ---
IV IV access obtained, via clean sterile technique by inserting 22 gauge catheter at left hand after 2 attempt(s). IV secured properly. No trauma to site. Patient tolerated well.
--- NOTE | 2019-11-01 09:30 | NUR ---
IV IV access obtained, via clean sterile technique by inserting 22 gauge catheter at RIGHT AC after 1 attempt(s). IV secured properly. No trauma to site. Patient tolerated well.
[2019-11-01] MEDS: LISINOPRIL 20 MG TAB PO SCH (10:00)
[2019-11-01] MEDS: ENOXAPARIN SOD 120 MG/0.8 ML SYRINGE SC SCH ×2 (10:00→22:00)
[2019-11-01] MEDS: AMIODARONE HCL 200 MG TAB PO SCH ×2 (10:00→21:59)
[2019-11-01] MEDS: FREE WATER GT SCH ×4 (10:00→21:59)
--- NOTE | 2019-11-01 10:00 | NUR ---
OGT OGT PLACED PER MD ORDER. SECURED AND CLAMPED. PLACEMENT CONFIRMED WITH TWO RN VERIFICATION.
--- NOTE | 2019-11-01 10:05 | NUR ---
Changed vent settings as ordered: AC, RR 18, VT 450, PEEP +10. Titrated fio2 to 80%. Pt tolerating changes well, no s/s of distress. RN at bedside. ABG to follow.
[2019-11-01] MEDS: CHOLECALCIFEROL (VITD3) 1,000UNIT=25mCg TAB PO SCH (10:28)
[2019-11-01] MEDS: DexAMETHasone SOD PHOS 4 MG/1ML SDV INJ IV SCH (10:29)
[2019-11-01] MEDS: ASCORBIC ACID 500 MG TAB PO SCH (10:29)
[2019-11-01] MEDS: ZINC SULFATE 220mg CAP or TAB PO SCH (10:29)
--- NOTE | 2019-11-01 11:00 | NUR ---
PAGED PAGEYadira REGARDING CENTRAL LINE PLACEMENT. CONSENTS OBTAINED FROM PT DAUGHTER. PT HAS POOR IV ACCESS. MULTIPLE IV ATTEMPT MADE BY RN. CURRY COMING TO BEDSIDE FOR LINE PLACEMENT.
--- NOTE | 2019-11-01 11:45 | NUR ---
BEDSIDE PROCEDURE RIGHT IJ TLC CATHETER PLACED BY WITH ASSISTANCE FROM [employer] TECH. CXR PAGED TO BEDSIDE FOR PLACEMENT CONFIRMATION.
--- NOTE | 2019-11-01 12:00 | NUR ---
CXR R-RAY TECH AT BEDSIDE.
--- NOTE | 2019-11-01 12:46 | NUR ---
MD VISIT DR.MILANI BANUELOS. UPDATED ON STATUS, MEDICATIONS, AND LABS. NO NEW ORDERS RECEIVED AT THIS TIME.
--- NOTE | 2019-11-01 14:08 | NUR ---
VENT: Titrated fio2 to 60%, SPO2 maintaining 95%, no s/s of distress. RN at bedside, made aware of changes.
--- NOTE | 2019-11-01 16:35 | NUR ---
MD VISIT DR.GRIGORIYAN BANUELOS. WANTS TO ADMINISTER CONVALESCENT PLASMA TO THIS PT. PAGED FOR APPROVAL. TYPE AND SCREEN ORDERED. AWAITING CALL BACK.
--- NOTE | 2019-11-01 19:07 | NUR ---
PLASMA SPOKE WITH REGARDING CONVALESCENT PLASMA. NO MORE AVAILABLE AT THIS TIME.
--- NOTE | 2019-11-01 19:08 | NUR ---
REPORT REPORT GIVEN TO OPHELIA REED, CARE ENDORSED.
--- NOTE | 2019-11-01 19:10 | NUR ---
OPENING SHIFT RECEIVED REPORT FROM DAY SHIFT RN. ASSUMED CARE OF PATIENT. PATIENT INTUBATED AND SEDATED WITH NO SIGNS OR SYMPTOMS OF SOB, PAIN OR DISTRESS. POSITIVE COUGH / GAG. RIGHT INTERNAL JUGULAR TLC AND LEFT FINGER IV - CLEAN/DRY/INTACT. DEAN HUNG TO GRAVITY. REPOSITIONED FOR COMFORT. SEDATION: VERSED - 12MG/HR VASOPRESSOR: LEVOPHED - 4MCG/MIN 1/2NS INFUSING AT 100ML/HR BED IN LOWEST POSITION, SIDE RAILS UP X2. WILL CONTINUE TO MONITOR.
--- NOTE | 2019-11-01 22:40 | NUR ---
RT AT BEDSIDE FI02 TITRATED FROM 60% TO 55%. 02 SAT - 95%. WILL CONTINUE TO MONITOR.
[2019-11-02] VITALS (99 sets, daily range): BP systolic 83–147; BP diastolic 49–74
[2019-11-02] MEDS: MIDAZOLAM DRIP 50 mg/50mL 50 ML IV SCH ×6 (01:00→23:02)
[2019-11-02] MEDS: FREE WATER GT SCH ×6 (01:39→21:35)
[2019-11-02] MEDS: ACCU-CHEK COMFORT CURVE STRIP VI SCH ×6 (04:00→20:00)
[2019-11-02] MEDS: MEROPENEM 1GM IVPB 100 ML IV SCH ×2 (04:00→16:37)
[2019-11-02] MEDS: InsuLIN REG 1unit/0.01ml Soln (100units/ml) SC SCH ×6 (04:00→21:30)
--- NOTE | 2019-11-02 04:24 | NUR ---
FIO2 TITRATED TO 50% PER RN. PT TOLERATING WELL.
--- NOTE | 2019-11-02 05:15 | NUR ---
MORNING CARE PARTIAL BED BATH WITH CHG WIPES AND WASH CLOTHS. PARTIAL LINEN CHANGE AND GOWN CHANGED. REPOSITIONED FOR COMFORT. SKIN REASSESSED AT THIS TIME. DEAN AND ORAL CARE PERFORMED. WILL CONTINUE TO MONITOR.
[2019-11-02 05:16] LABS: Albumin 1.5 g/dL (3.4-5.0); Calcium 8.2 mg/dL (8.5-10.1); Potassium 4.1 mmol/L (3.5-5.1)
[2019-11-02 05:20] LABS: BUN/Creatinine Ratio 36.8; Bilirubin, Total 0.7 mg/dL (0.2-1.0); Total Protein 5.6 g/dL (6.4-8.2)
--- NOTE | 2019-11-02 07:22 | NUR ---
END OF SHIFT REPORT GIVEN TO DAY SHIFT RN. CARE ENDORSED.
--- NOTE | 2019-11-02 07:25 | NUR ---
REPORT REPORT RECEIVED FROM OPHELIA REED, CARE ASSUMED. VITAL SIGNS REMAIN STABLE, WILL CONTINUE TO MONITOR.
[2019-11-02 07:44] LABS: Basophils # (auto) 0.1 10 ^3/uL (0-0.2); Basophils % (auto) 0.6 % (0.0-2.0); Eosinophils # (auto) 0.1 10 ^3/uL (0-0.8); Eosinophils % (auto) 0.4 % (0.0-7.0); Hematocrit 38.4 % (41.0-53.0); Lymphocytes # (auto) 1.4 10 ^3/uL (0.4-5.4); Lymphocytes % (auto) 9.8 % (10.0-50.0); Mean Corpuscular Hemoglobin 27.8 pg (28.0-32.0); Mean Corpuscular Hgb Conc. 31.3 g/dL (32.0-36.0); Monocytes % (auto) 6.8 % (0.0-12.0); Neutrophils # (auto) 11.7 10 ^3/uL (1.6-8.6); Neutrophils % (auto) 82.4 % (37.0-80.0); Platelet Count (auto) 238 10^3/uL (140-450); Red Blood Cells 4.32 10^6/uL (4.5-5.90); White Blood Cell 14.2 10^3/uL (4.4-10.8)
--- NOTE | 2019-11-02 08:10 | NUR ---
INITIAL CONTACT PT OBSERVED RESTING IN BED, INTUBATED ON VENTILATOR. TOLERATING VENTILATION AT THIS TIME. SEDATION OF VERSED. PT MOVES FEET SPONTANEOUSLY, FACIAL GRIMACING WITH ACTIVITY. AFEBRILE. PULSES PALPABLE BILATERALLY. SCD'S ON BILATERAL LOWER EXTREMITIES. LUNGS CLEAR, BUT DIMINISHED ANTERIORLY. RESPIRATIONS ARE EVEN AND UNLABORED. NO SIGNS OF DISTRESS NOTED. LEVOPHED DRIP IN PLACE FOR HEMODYNAMIC STABILITY. DEAN CATHETER PATENT, SECURED BELOW BLADDER. SEE SKIN/WOUND ASSESSMENT. ALARMS IN PLACE, BED LOCKED IN LOWEST POSITION. PT ON FREQUENT TURNING SCHEDULE. ALL EXTREMITIES OFF LOADED ON PILLOWS. WILL CONTINUE TO MONITOR.
[2019-11-02] MEDS: NOREPINEPHRINE 8 MG/250ML KIT 250 ML IV SCH ×2 (08:23→14:00)
[2019-11-02] MEDS: AZITHROMYCIN 500MG/ 250ML 250 ML IV SCH (09:21)
--- NOTE | 2019-11-02 09:39 | NUR ---
MD VISIT ROUNDING ON PATIENT. MD AWARE OF LABS AND IMAGINING. NO NEW ORDERS RECEIVED AT THIS TIME. WILL CONTINUE TO MONITOR.
[2019-11-02] MEDS: AMIODARONE HCL 200 MG TAB PO SCH ×2 (10:00→21:36)
[2019-11-02] MEDS: LISINOPRIL 20 MG TAB PO SCH (10:00)
--- NOTE | 2019-11-02 10:20 | NUR ---
FAMILY PT DAUGHTER CONSUELO CALLED FOR UPDATED. PASSWORD PROVIDED. ALL QUESTIONS AND CONCERNS ADDRESSED.
[2019-11-02] MEDS: DexAMETHasone SOD PHOS 4 MG/1ML SDV INJ IV SCH (10:37)
--- NOTE | 2019-11-02 10:51 | NUR ---
hepa filter changed.
[2019-11-02] MEDS: ZINC SULFATE 220mg CAP or TAB PO SCH (11:29)
[2019-11-02] MEDS: CHOLECALCIFEROL (VITD3) 1,000UNIT=25mCg TAB PO SCH (11:29)
[2019-11-02] MEDS: ASCORBIC ACID 500 MG TAB PO SCH (11:29)
[2019-11-02] MEDS: ENOXAPARIN SOD 120 MG/0.8 ML SYRINGE SC SCH (11:30)
--- NOTE | 2019-11-02 14:30 | NUR ---
WOUND CARE NOTE: IN TO SEE PATIENT AT THIS TIME FOR WOUND REEVALUATION. PATIENT CONTINUES TO BE INTUBATE, SEDATED. HE IS IN AIRBORNE ISOLATION FOR COVID 19. CURRENT FARNAZ SCORE IS ASSESSED AT 10. PATIENT'S BILATERAL HEELS ARE NOW PINK AND BLANCHABLE. NO WOUNDS IDENTIFIED. PATIENT TURNED TO LEFT SIDE. HE CONTINUES TO HAVE 2 SMALL STAGE 2 PRESSURE INJURIES, WITH THE LARGEST BEING 1 X 1 CM. WOUND BED IS RED, WITH SCANT SEROSANGUINOUS DRAINAGE NOTED. APPLIED ZGUARD, OPTIFOAM GENTLE SACRAL DRESSING. POSTERIOR SCROTAL SKIN HAS MILD SKIN EROSION NOTED FROM MASD. APPLIED ZGUARD. XEROSIS NOTED TO BILATERAL FOREFEET, WITH FLAKING SKIN NOTED. BILATERAL ARMS HAVE INTACT ECCHYMOSIS NOTED. LEFT OPEN TO AIR. NO OTHER SKIN INTEGRITY ISSUES NOTED AT THIS TIME. PATIENT REPOSITIONED ONTO RIGHT SIDE, REDISTRIBUTING PRESSURE POINTS USING PILLOWS/WEDGES. WOUND PHOTOS WERE TAKEN FOR REFERENCE AT THIS TIME. RECOMMEND: HYDRAGUARD BID TO XEROTIC SKIN ON BILATAERAL FEET, CONTINUATION WITH ALL OTHER WOUND CARE ORDERS PREVIOUSLY PRESCRIBED BY MD. WOUND CARE TEAM WILL CONTINUE TO MONITOR. Addendum: 11/02/19 at 1607 by Jamila Baker RN Amended: Links added.
--- NOTE | 2019-11-02 15:05 | NUR ---
WOUND CARE MATILDE GRINDER NEEDLE TIP NURSE AT BEDSIDE FOR SKIN ASSESSMENT. PARTIAL LINEN CHANGE PERFORMED. PATIENT THEN REPOSITIONED ON SIDE WITH HOB ELEVATED. VITAL SIGNS REMAINING STABLE AT THIS TIME. ORAL CARE COMPLETE. WILL CONTINUE TO MONITOR.
[2019-11-02] MEDS: SOD CHL 0.45% 1,000 ML IV SCH (16:34)
--- NOTE | 2019-11-02 17:47 | NUR ---
MD VISIT ROUNDGEO AT BEDSIDE.
--- NOTE | 2019-11-02 17:50 | NUR ---
PAGED REQUESTING APPROVAL FOR REMDESIVIR. PAGED REGARDING APPROVAL FOR REMDESIVIR. RETURNED CALL. LIMITED AMOUNT OF MEDICATION AT THIS TIME. PT NOT APPROVED. AWARE.
--- NOTE | 2019-11-02 19:22 | NUR ---
REPORT REPORT GIVEN TO CIRA REED, CARE ENDORSED.
--- NOTE | 2019-11-02 20:00 | NUR ---
OPENING NOTE RECEIVED REPORT FROM DAY SHIFT RN. ASSUMED CARE OF PATIENT. PATIENT INTUBATED AND SEDATED WITH NO SIGNS OR SYMPTOMS OF SOB, PAIN OR DISTRESS. POSITIVE COUGH / GAG. RIGHT INTERNAL JUGULAR TLC AND LEFT HAND IV - CLEAN/DRY/INTACT. DEAN HUNG TO GRAVITY. REPOSITIONED FOR COMFORT. APPLIED OPTIFOAM TO PRESSURE AREAS, APPLIED Z-GUARD FOR SCROTUM. BED IN LOWEST POSITION, SIDE RAILS UP X4 FOR SAFETY. WILL CONTINUE TO MONITOR.
[2019-11-02] MEDS: ENOXAPARIN SOD 80 MG/0.8ML SYRINGE SC SCH (21:35)
[2019-11-03] VITALS (94 sets, daily range): BP systolic 88–150; BP diastolic 44–67
[2019-11-03] MEDS: ACCU-CHEK COMFORT CURVE STRIP VI SCH ×6 (00:27→20:00)
[2019-11-03] MEDS: SOD CHL 0.45% 1,000 ML IV SCH ×2 (00:30→05:19)
[2019-11-03] MEDS: InsuLIN REG 1unit/0.01ml Soln (100units/ml) SC SCH ×6 (00:43→20:30)
[2019-11-03] MEDS: FREE WATER GT SCH ×6 (02:00→22:17)
--- NOTE | 2019-11-03 02:00 | NUR ---
WARMING MEASURES TEMP 97.9, BRADYCARDIA MALDONADO HUGGER WARMING BLANKET PLACED BETWEEN HOSPITAL BLANKETS.
--- NOTE | 2019-11-03 02:20 | NUR ---
CARES FULL BED LINEN CHANGE, PARTIAL BED BATH, NO BM. OPTIFOAM APPLIED TO SACRUM.
[2019-11-03] MEDS: MEROPENEM 1GM IVPB 100 ML IV SCH ×3 (04:30→22:17)
[2019-11-03 04:52] LABS: Basophils # (auto) 0 10 ^3/uL (0-0.2); Basophils % (auto) 0.1 % (0.0-2.0); Eosinophils # (auto) 0 10 ^3/uL (0-0.8); Hematocrit 35.2 % (41.0-53.0); Hemoglobin 11.3 g/dL (13.5-17.5); Lymphocytes # (auto) 1.2 10 ^3/uL (0.4-5.4); Lymphocytes % (auto) 9.7 % (10.0-50.0); Mean Corpuscular Hemoglobin 28.4 pg (28.0-32.0); Mean Corpuscular Hgb Conc. 32.1 g/dL (32.0-36.0); Mean Corpuscular Volume 88.4 fL (80.0-100.0); Monocytes # (auto) 1.2 10 ^3/uL (0-1.3); Monocytes % (auto) 10.1 % (0.0-12.0); Neutrophils # (auto) 9.7 10 ^3/uL (1.6-8.6); Neutrophils % (auto) 80.1 % (37.0-80.0); Platelet Count (auto) 192 10^3/uL (140-450); Red Blood Cells 3.98 10^6/uL (4.5-5.90); Red Cell Distribution Width 14.7 % (11.8-14.3); White Blood Cell 12.1 10^3/uL (4.4-10.8)
[2019-11-03 05:10] LABS: Albumin 1.4 g/dL (3.4-5.0); Calcium 7.3 mg/dL (8.5-10.1); Potassium 3.9 mmol/L (3.5-5.1)
[2019-11-03 05:13] LABS: BUN/Creatinine Ratio 37.8; Bilirubin, Total 0.6 mg/dL (0.2-1.0); Total Protein 5.1 g/dL (6.4-8.2)
[2019-11-03] MEDS: MIDAZOLAM DRIP 50 mg/50mL 50 ML IV SCH ×3 (05:13→14:13)
--- NOTE | 2019-11-03 07:55 | NUR ---
OPENING Report received from Cami GOLDSMITH RN. Care initiated and initial assessment complete.
--- NOTE | 2019-11-03 09:48 | NUR ---
UPDATED FAMILY I spoke to Jo-Ann, patients daughter, over the phone. I updated her on patient status and answered all questions and concerns. Daughters number for reference is [phone] and is in the chart and under contact info.
[2019-11-03] MEDS: AMIODARONE HCL 200 MG TAB PO SCH ×2 (10:00→22:22)
[2019-11-03] MEDS: AZITHROMYCIN 500MG/ 250ML 250 ML IV SCH (10:35)
[2019-11-03] MEDS: ZINC SULFATE 220mg CAP or TAB PO SCH (10:36)
[2019-11-03] MEDS: ASCORBIC ACID 500 MG TAB PO SCH (10:36)
[2019-11-03] MEDS: ENOXAPARIN SOD 80 MG/0.8ML SYRINGE SC SCH ×2 (10:36→22:22)
[2019-11-03] MEDS: CHOLECALCIFEROL (VITD3) 1,000UNIT=25mCg TAB PO SCH (10:36)
[2019-11-03] MEDS: DexAMETHasone SOD PHOS 10MG/1ML VIAL INJ IV SCH (10:47)
--- NOTE | 2019-11-03 11:30 | NUR ---
Nutrition Followup Notes Pt wt is 85.5 kg Pt is covid positive in isolation. Pt intubated with NPO diet order. Prior to intubated pt po intake was inadequate aeb pt with multiple 0% po intake. If TF is recommended for pt consider Glucerna 1.2 at a goal rate of 70 ml/hr per MD approval. Est energy needs BW 81 [id number] kcal (23-25 kcal/kg BW) Est protein 65-81g (0.8-1.0g/kg elevated RFTs) Will reassess prn. LABS: BUN 42H, Alb 1.4L, Ca 7.3L, Gluc 172H GI: Pt had 2 BM on 10.25 per RN doc BS: 14 mod risk. Refer to wound assessment report for full details. PES: 1) Altered nutrition related lab values r.t current chronic medical condition aeb elev RFT severe hypoalb 2) Inadequate PO intake r.t current medical condition aeb pt`s with COVID and PO recorded < 50% Comments 1) If Pt is NPO >48 and TF is recommended Consider Glucerna 1.2 with a goal rate of 70 ml/hr 2) Advance diet as medically feasible 3) Refer to CDE on DC 4) Continue current plan of care
[2019-11-03] MEDS ORDERED: FUROSEMIDE 40 MG/4 ML VIAL IV ONE (15:45)
--- NOTE | 2019-11-03 19:32 | NUR ---
OPENING NOTE RECEIVED REPORT FROM DAY SHIFT RN. ASSUMED CARE OF PATIENT. PATIENT INTUBATED AND SEDATED WITH NO SIGNS OR SYMPTOMS OF SOB, PAIN OR DISTRESS. POSITIVE COUGH / GAG. RIGHT INTERNAL JUGULAR TLC AND LEFT HAND IV - CLEAN/DRY/INTACT. DEAN HUNG TO GRAVITY. REPOSITIONED FOR COMFORT. APPLIED Z-GUARD FOR SCROTUM. BED IN LOWEST POSITION, SIDE RAILS UP X4 FOR SAFETY. WILL CONTINUE TO MONITOR.
[2019-11-04] VITALS (104 sets, daily range): BP systolic 77–127; BP diastolic 44–68
[2019-11-04] MEDS: MIDAZOLAM DRIP 50 mg/50mL 50 ML IV SCH ×2 (01:25→21:00)
[2019-11-04] MEDS: FREE WATER GT SCH ×6 (02:00→22:04)
[2019-11-04] MEDS: InsuLIN REG 1unit/0.01ml Soln (100units/ml) SC SCH ×6 (04:00→21:04)
[2019-11-04] MEDS: ACCU-CHEK COMFORT CURVE STRIP VI SCH ×6 (04:00→20:00)
[2019-11-04 05:52] LABS: Potassium 3.9 mmol/L (3.5-5.1)
[2019-11-04] MEDS: MEROPENEM 1GM IVPB 100 ML IV SCH ×3 (05:55→22:04)
[2019-11-04 05:57] LABS: Albumin 1.6 g/dL (3.4-5.0); BUN/Creatinine Ratio 32.8; Bilirubin, Total 0.6 mg/dL (0.2-1.0); Total Protein 5.4 g/dL (6.4-8.2)
--- NOTE | 2019-11-04 06:24 | NUR ---
PROGRESS NOTE PATIENT RESTING IN BED, NO SIGNS OF SHORTNESS OF BREATH. PATIENT ON VENTILATOR AND SEDATED, MINIMUM RIGHT ARM AND LOWER BILATERAL EXTREMITY MOVEMENT. DURING SHIFT SYSTOLIC BP DROPPED BELOW 90, STARTED LEVO 2MCG, UNABLE TO TAKE PATIENT OFF LEVO. NO BOWEL MOVEMENT. WILL CONTINUE TO MONITOR.
--- NOTE | 2019-11-04 07:50 | NUR ---
OPENING Report received from Cami GOLDSMITH RN. Care initiated and initial assessment complete.
[2019-11-04] MEDS: NOREPINEPHRINE 8 MG/250ML KIT 250 ML IV SCH (08:23)
[2019-11-04] MEDS: AZITHROMYCIN 500MG/ 250ML 250 ML IV SCH (10:07)
[2019-11-04] MEDS: ASCORBIC ACID 500 MG TAB PO SCH (10:07)
[2019-11-04] MEDS: DexAMETHasone SOD PHOS 10MG/1ML VIAL INJ IV SCH (10:07)
[2019-11-04] MEDS: CHOLECALCIFEROL (VITD3) 1,000UNIT=25mCg TAB PO SCH (10:08)
[2019-11-04] MEDS: ENOXAPARIN SOD 80 MG/0.8ML SYRINGE SC SCH ×2 (10:08→22:05)
[2019-11-04] MEDS: ZINC SULFATE 220mg CAP or TAB PO SCH (10:08)
--- NOTE | 2019-11-04 15:00 | NUR ---
COMPLETE LINEN CHANGE Patient tolerated well. Small smear noted and cleaned. Patient tolerated well.
--- NOTE | 2019-11-04 16:30 | NUR ---
ROUNDING Dr. Stanley rounding. No new orders received.
--- NOTE | 2019-11-04 19:50 | NUR ---
CHANGED CENTRAL LINE DRESSING PT BLEEDING FROM CENTRAL LINE APPLIED NEW DRESSING USING STERILE TECHNIQUE, PT TOLERATED WELL. Addendum: 11/05/19 at 0743 by SALENA DIAZ RN RN ACTUAL TIME OF DRESSING CHANGE WAS 2250
--- NOTE | 2019-11-04 21:10 | NUR ---
INITIATED WARMING MEASURES TEMP 97.7 RECTAL UTILIZING HEAT LAMP AND MALDONADO HUGGER
--- NOTE | 2019-11-04 21:30 | NUR ---
DYSRHYTHMIA OBTAINED EKG, K AND MAG LABS. PT SWITCHED FROM NSR TO SR WITH 1 DEGREE HB WITH FUSION COMPLEXES. RIGHT BUNDLE BRANCH BLOCK. BP DROPPED TO 89/53
[2019-11-04] MEDS: AMIODARONE HCL 200 MG TAB PO SCH (22:00)
[2019-11-04 22:22] LABS: BUN/Creatinine Ratio 34.5; Calcium 7.6 mg/dL (8.5-10.1); Magnesium 1.9 mg/dL (1.6-2.6); Potassium 4.2 mmol/L (3.5-5.1)
[2019-11-05] VITALS (102 sets, daily range): BP systolic 78–136; BP diastolic 42–75
[2019-11-05] MEDS: InsuLIN REG 1unit/0.01ml Soln (100units/ml) SC SCH ×6 (00:25→22:00)
[2019-11-05] MEDS: FREE WATER GT SCH ×6 (02:00→22:00)
[2019-11-05] MEDS: ACCU-CHEK COMFORT CURVE STRIP VI SCH ×6 (04:00→20:00)
--- NOTE | 2019-11-05 04:00 | NUR ---
CHANGED CENTRAL LINE DRESSING PT CONTINUES TO BLEED APPLIED SNOW HEMOSTAT APPLIED NEW DRESSING USING STERILE TECHNIQUE Addendum: 11/05/19 at 0744 by SALENA DIAZ RN RN WILL NOTIFY DAY SHIFT NURSE OF POSSIBLY HOLDING NEXT DOSE OF LOVENOX
[2019-11-05] MEDS: MIDAZOLAM DRIP 50 mg/50mL 50 ML IV SCH ×2 (04:10→14:22)
[2019-11-05] MEDS: MEROPENEM 1GM IVPB 100 ML IV SCH ×3 (05:17→22:30)
[2019-11-05] MEDS: NOREPINEPHRINE 8 MG/250ML KIT 250 ML IV SCH (05:18)
[2019-11-05 05:35] LABS: Albumin 1.7 g/dL (3.4-5.0); Calcium 7.6 mg/dL (8.5-10.1); Potassium 3.9 mmol/L (3.5-5.1)
[2019-11-05 05:39] LABS: Bilirubin, Total 0.6 mg/dL (0.2-1.0); Total Protein 5.7 g/dL (6.4-8.2)
--- NOTE | 2019-11-05 07:45 | NUR ---
OPENING Report received from Jesus GOLDSMITH RN. Care initiated and initial assessment complete.
--- NOTE | 2019-11-05 09:00 | NUR ---
CHECKING ON PATIENT STATUS Yoseph calling for telephone rounds.
[2019-11-05] MEDS: ASCORBIC ACID 500 MG TAB PO SCH (09:50)
[2019-11-05] MEDS: DexAMETHasone SOD PHOS 10MG/1ML VIAL INJ IV SCH (09:50)
[2019-11-05] MEDS: CHOLECALCIFEROL (VITD3) 1,000UNIT=25mCg TAB PO SCH (09:50)
[2019-11-05] MEDS: AZITHROMYCIN 500MG/ 250ML 250 ML IV SCH (09:50)
[2019-11-05] MEDS: ENOXAPARIN SOD 80 MG/0.8ML SYRINGE SC SCH ×2 (09:50→22:30)
[2019-11-05] MEDS: ZINC SULFATE 220mg CAP or TAB PO SCH (09:50)
[2019-11-05 10:06] LABS: Basophils # (auto) 0 10 ^3/uL (0-0.2); Basophils % (auto) 0.1 % (0.0-2.0); Eosinophils # (auto) 0 10 ^3/uL (0-0.8); Hematocrit 38.2 % (41.0-53.0); Hemoglobin 12.1 g/dL (13.5-17.5); Lymphocytes # (auto) 1.8 10 ^3/uL (0.4-5.4); Lymphocytes % (auto) 8.8 % (10.0-50.0); Mean Corpuscular Hemoglobin 27.9 pg (28.0-32.0); Mean Corpuscular Hgb Conc. 31.8 g/dL (32.0-36.0); Mean Corpuscular Volume 87.7 fL (80.0-100.0); Monocytes % (auto) 14.3 % (0.0-12.0); Neutrophils # (auto) 16.1 10 ^3/uL (1.6-8.6); Neutrophils % (auto) 76.8 % (37.0-80.0); Platelet Count (auto) 205 10^3/uL (140-450); Red Blood Cells 4.35 10^6/uL (4.5-5.90); Red Cell Distribution Width 14.8 % (11.8-14.3)
[2019-11-05 10:21] LABS: INR 1.71 (0.9-1.15); Partial Thromboplastin Time 33.9 sec (23.64-32.05)
--- NOTE | 2019-11-05 13:01 | NUR ---
Nutrition Followup Notes Pt wt is 87.0 kg Pt is covid positive in isolation. Pt intubated, NPO since 10/30 per RN doc. Suggest nutrition support be initiated. If TF is recommended for pt consider Glucerna 1.2 at a goal rate of 70 ml/hr per MD approval. Will continue to monitor PO status, skin status, pertinent labs and weight trends. Will f/u in 2-3 days. Est energy needs BW 81 [id number] kcal (23-25 kcal/kg BW) Est protein 65-81g (0.8-1.0g/kg elevated RFTs) Will reassess prn. LABS: BUN 50H, Cr 1.35 H, GFR 55 L, Alb 1.7 L, Ca 7.6 L, Gluc 221 H GI: Pt had last BM on 10/27 per RN doc BS: 14 mod risk. Refer to wound assessment report for full details. PES: 1) Altered nutrition related lab values r.t current chronic medical condition aeb elev RFT severe hypoalb 2) Inadequate PO intake r.t current medical condition aeb pt`s with COVID and PO recorded < 50% Comments 1) If Pt is NPO >48 and TF is recommended Consider Glucerna 1.2 with a goal rate of 70 ml/hr 2) Advance diet as medically feasible 3) Refer to CDE on DC 4) Continue current plan of care
--- NOTE | 2019-11-05 16:49 | NUR ---
PARTIAL LINEN CHANGE No BM noted. Patient tolerated fairly.
--- NOTE | 2019-11-05 19:30 | NUR ---
Opening Shift Note Received report from day shift RN. Received pt on mechanical ventilator, sedated on versed. Full assessment done see interventions. All alarms on and audible. Pt in full view of RN.
[2019-11-05] MEDS: AMIODARONE HCL 200 MG TAB PO SCH (22:00)
[2019-11-06] VITALS (93 sets, daily range): BP systolic 75–160; BP diastolic 47–74
[2019-11-06] MEDS: InsuLIN REG 1unit/0.01ml Soln (100units/ml) SC SCH ×6 (00:50→21:10)
[2019-11-06] MEDS: FREE WATER GT SCH ×6 (02:00→22:00)
[2019-11-06] MEDS: ACCU-CHEK COMFORT CURVE STRIP VI SCH ×6 (03:54→20:00)
--- NOTE | 2019-11-06 04:30 | NUR ---
Cares Pt given complete bed bath and partial linen change performed at this time. Pt tolerated well.
[2019-11-06 04:32] LABS: Basophils # (auto) 0.1 10 ^3/uL (0-0.2); Basophils % (auto) 0.3 % (0.0-2.0); Eosinophils # (auto) 0 10 ^3/uL (0-0.8); Hematocrit 36.8 % (41.0-53.0); Hemoglobin 11.9 g/dL (13.5-17.5); Lymphocytes # (auto) 1.6 10 ^3/uL (0.4-5.4); Lymphocytes % (auto) 7.9 % (10.0-50.0); Mean Corpuscular Hemoglobin 28.4 pg (28.0-32.0); Mean Corpuscular Hgb Conc. 32.3 g/dL (32.0-36.0); Mean Corpuscular Volume 88.1 fL (80.0-100.0); Monocytes # (auto) 2.4 10 ^3/uL (0-1.3); Monocytes % (auto) 12.3 % (0.0-12.0); Neutrophils # (auto) 15.8 10 ^3/uL (1.6-8.6); Neutrophils % (auto) 79.5 % (37.0-80.0); Platelet Count (auto) 190 10^3/uL (140-450); Red Blood Cells 4.18 10^6/uL (4.5-5.90); Red Cell Distribution Width 15.5 % (11.8-14.3); White Blood Cell 19.8 10^3/uL (4.4-10.8)
[2019-11-06 04:52] LABS: Albumin 1.7 g/dL (3.4-5.0); Calcium 7.8 mg/dL (8.5-10.1); Potassium 3.9 mmol/L (3.5-5.1)
[2019-11-06 04:55] LABS: BUN/Creatinine Ratio 37.1; Bilirubin, Total 0.6 mg/dL (0.2-1.0); Total Protein 5.4 g/dL (6.4-8.2)
[2019-11-06] MEDS: MEROPENEM 1GM IVPB 100 ML IV SCH ×4 (06:04→22:08)
[2019-11-06] MEDS: MIDAZOLAM DRIP 50 mg/50mL 50 ML IV SCH ×2 (06:50→11:23)
--- NOTE | 2019-11-06 07:21 | NUR ---
Care endorsed to day shift RN.
[2019-11-06] MEDS: ZINC SULFATE 220mg CAP or TAB PO SCH (08:35)
[2019-11-06] MEDS: ASCORBIC ACID 500 MG TAB PO SCH (08:35)
[2019-11-06] MEDS: DexAMETHasone SOD PHOS 10MG/1ML VIAL INJ IV SCH (08:36)
[2019-11-06] MEDS: CHOLECALCIFEROL (VITD3) 1,000UNIT=25mCg TAB PO SCH (08:36)
[2019-11-06] MEDS: AZITHROMYCIN 500MG/ 250ML 250 ML IV SCH (08:36)
[2019-11-06] MEDS: ENOXAPARIN SOD 80 MG/0.8ML SYRINGE SC SCH ×2 (08:38→22:08)
[2019-11-06] MEDS: NOREPINEPHRINE 8 MG/250ML KIT 250 ML IV SCH (11:23)
--- NOTE | 2019-11-06 12:53 | NUR ---
RN SPOKE WITH DAUGHTER FAMILY MEMBER PROVIDED PW, DAUGHTER UPDATED. NO FURTHER QUESTIONS.
[2019-11-06] MEDS ORDERED: MAGNESIUM SULFATE 1GM/100ML 100 ML IV ONE (14:15)
[2019-11-06] MEDS ORDERED: POTASSIUM CHL 20MEQ/100ML 100 ML IV ONE (14:15)
--- NOTE | 2019-11-06 14:21 | NUR ---
PER MD NAM NO STANDBY ORDERS FOR K OR MG.
[2019-11-06] MEDS: AMIODARONE HCL 200 MG TAB PO SCH (22:00)
[2019-11-07] VITALS (89 sets, daily range): BP systolic 86–136; BP diastolic 53–72
[2019-11-07] MEDS: MIDAZOLAM DRIP 50 mg/50mL 50 ML IV SCH ×2 (00:28→07:41)
[2019-11-07] MEDS: FREE WATER GT SCH ×6 (02:00→21:56)
[2019-11-07] MEDS: InsuLIN REG 1unit/0.01ml Soln (100units/ml) SC SCH ×6 (04:00→21:26)
[2019-11-07] MEDS: ACCU-CHEK COMFORT CURVE STRIP VI SCH ×6 (04:00→20:00)
--- NOTE | 2019-11-07 05:30 | NUR ---
CARES Pt given bed bath and linen change at this time. Pt tolerated well. Small BM smear noted.
[2019-11-07] MEDS: MEROPENEM 1GM IVPB 100 ML IV SCH ×3 (06:00→21:56)
[2019-11-07 06:12] LABS: BUN/Creatinine Ratio 35.2; Potassium 4.7 mmol/L (3.5-5.1)
--- NOTE | 2019-11-07 06:30 | NUR ---
Respiratory note: PT RECEIVED ON VENT # [id number]. PLUGGED INTO A RED OUTLET AND PROPER O2 SOURCE. AMBU BAG/MASK AT BEDSIDE. ETT SECURED WITH A HOLISTER.NO LIP BREAKDOWN. BILATERAL BS ARE CLEAR THROUGHOUT. SUCTIONED WITH SCANT RETURN.PT IS ON SEDATION. SKIN IS WARM AND DRY TO THE TOUCH WITH EDEMA NOTED ON ALL APPENDICULARS.POC: MAINTAIN ADEQUATE OXYGENATION,VENTILATION,AND PULMONARY HYGIENE.
[2019-11-07] MEDS: NOREPINEPHRINE 8 MG/250ML KIT 250 ML IV SCH (08:23)
[2019-11-07] MEDS: CHOLECALCIFEROL (VITD3) 1,000UNIT=25mCg TAB PO SCH (09:32)
[2019-11-07] MEDS: ASCORBIC ACID 500 MG TAB PO SCH (09:32)
[2019-11-07] MEDS: ZINC SULFATE 220mg CAP or TAB PO SCH (09:32)
[2019-11-07] MEDS: DexAMETHasone SOD PHOS 10MG/1ML VIAL INJ IV SCH (09:33)
--- NOTE | 2019-11-07 09:50 | NUR ---
Respiratory note: BRIANNA KEE AT BEDSIDE CLEANING AND TURNING PT. NO VENT CHANGES ORDERED AT THIS TIME. PT REMAINS COMFORTABLY SEDATED. WILL CONTINUE TO MONITOR ORDERED.
[2019-11-07] MEDS: ENOXAPARIN SOD 80 MG/0.8ML SYRINGE SC SCH ×2 (10:00→21:56)
[2019-11-07] MEDS: AZITHROMYCIN 500MG/ 250ML 250 ML IV SCH (10:58)
[2019-11-07] MEDS ORDERED: FUROSEMIDE 40 MG/4 ML VIAL IV ONE (11:45)
--- NOTE | 2019-11-07 11:51 | NUR ---
Nutrition Followup Notes Pt wt is 87.0 kg Pt is covid positive in isolation. Pt intubated, NPO since 10/30 per RN doc. Consider starting alternate nutrition per MD approval. If pt GI is accessible consider Glucerna 1.2 with a goal rate of 70ml/hr. Will continue to monitor PO status, skin status, pertinent labs and weight trends. Will f/u in 2-3 days. Est energy needs BW 81 [id number] kcal (23-25 kcal/kg BW) Est protein 65-81g (0.8-1.0g/kg elevated RFTs) Will reassess prn. LABS: BUN 44H, GLUC 168H, Ca 8.0L, Alb 1.7L GI: Pt had last BM on 10/27 per RN doc BS: 14 mod risk. Refer to wound assessment report for full details. PES: 1) Altered nutrition related lab values r.t current chronic medical condition aeb elev RFT severe hypoalb 2) Inadequate PO intake r.t current medical condition aeb pt`s with COVID and PO recorded < 50% Comments 1) If Pt is NPO >48 and TF is recommended Consider Glucerna 1.2 with a goal rate of 70 ml/hr 2) Advance diet as medically feasible 3) Refer to CDE on DC 4) Continue current plan of care
--- NOTE | 2019-11-07 16:20 | NUR ---
Respiratory note: NEW VENT ORDERS IMPLEMENTED PER DR MCKEON AC 18, 450, +8, 40%. PT TOLERATING CHANGES WELL. BRIANNA KEE AWARE CHANGES WERE MADE AT THIS TIME.
--- NOTE | 2019-11-07 18:00 | NUR ---
DR SANTILLAN AND DR SCHNEIDER BOTH MDS UPDATED ON PATIENT'S STATUS AND DRIPS. DR SANTILLAN AWARE THAT THIS NURSE HELD LOVENOX THIS MORNING DUE TO BLEEDING FROM CENTRAL LINE, DR SANTILLAN VERBALIZED UNDERSTANDING. DR SCHNEIDER AWARE OF THE QT INTERVAL .36-.44. DR SCHNEIDER VERBALIZED UNDERSTANDING AND STATED "OK TO GIVE AMIODARONE PO THIS EVENING". WILL ENDORSE TO FOOTWEAR STITCHER RN.
[2019-11-07] MEDS: AMIODARONE HCL 200 MG TAB PO SCH (21:56)
[2019-11-07] MEDS ORDERED: PANTOPRAZOLE 40 MG/10 ML VIAL INJ IV ONE (22:00)
[2019-11-08] VITALS (89 sets, daily range): BP systolic 75–134; BP diastolic 40–68
[2019-11-08] MEDS: InsuLIN REG 1unit/0.01ml Soln (100units/ml) SC SCH ×6 (00:55→20:00)
[2019-11-08] MEDS: FREE WATER GT SCH ×4 (02:00→17:36)
[2019-11-08] MEDS: ACCU-CHEK COMFORT CURVE STRIP VI SCH ×6 (04:00→20:00)
--- NOTE | 2019-11-08 04:00 | NUR ---
Cares Cleansed pt and provided wound care. Partial linen change at this time. Pt tolerated well.
[2019-11-08 04:52] LABS: Basophils # (auto) 0 10 ^3/uL (0-0.2); Basophils % (auto) 0.1 % (0.0-2.0); Eosinophils # (auto) 0 10 ^3/uL (0-0.8); Eosinophils % (auto) 0.1 % (0.0-7.0); Hematocrit 36.7 % (41.0-53.0); Hemoglobin 11.6 g/dL (13.5-17.5); Lymphocytes # (auto) 1.7 10 ^3/uL (0.4-5.4); Mean Corpuscular Hemoglobin 27.9 pg (28.0-32.0); Mean Corpuscular Hgb Conc. 31.6 g/dL (32.0-36.0); Mean Corpuscular Volume 88.3 fL (80.0-100.0); Monocytes # (auto) 2.5 10 ^3/uL (0-1.3); Monocytes % (auto) 11.7 % (0.0-12.0); Neutrophils # (auto) 16.8 10 ^3/uL (1.6-8.6); Neutrophils % (auto) 80.1 % (37.0-80.0); Platelet Count (auto) 171 10^3/uL (140-450); Red Blood Cells 4.16 10^6/uL (4.5-5.90); Red Cell Distribution Width 15.1 % (11.8-14.3); White Blood Cell 20.9 10^3/uL (4.4-10.8)
[2019-11-08 05:13] LABS: Potassium 4.3 mmol/L (3.5-5.1)
[2019-11-08 05:18] LABS: BUN/Creatinine Ratio 40.2
[2019-11-08] MEDS: MEROPENEM 1GM IVPB 100 ML IV SCH ×3 (06:00→22:15)
--- NOTE | 2019-11-08 07:30 | NUR ---
Care endorsed to day shift RN.
[2019-11-08] MEDS: MIDAZOLAM DRIP 50 mg/50mL 50 ML IV SCH (07:42)
[2019-11-08] MEDS: NOREPINEPHRINE 8 MG/250ML KIT 250 ML IV SCH (08:23)
[2019-11-08] MEDS: ZINC SULFATE 220mg CAP or TAB PO SCH (08:38)
[2019-11-08] MEDS: ASCORBIC ACID 500 MG TAB PO SCH (08:38)
[2019-11-08] MEDS: PANTOPRAZOLE 40 MG/10 ML VIAL INJ IV SCH (08:39)
[2019-11-08] MEDS: CHOLECALCIFEROL (VITD3) 1,000UNIT=25mCg TAB PO SCH (08:39)
[2019-11-08] MEDS: DexAMETHasone SOD PHOS 10MG/1ML VIAL INJ IV SCH (08:40)
[2019-11-08] MEDS: AZITHROMYCIN 500MG/ 250ML 250 ML IV SCH (10:00)
[2019-11-08] MEDS: ENOXAPARIN SOD 80 MG/0.8ML SYRINGE SC SCH ×2 (10:00→22:15)
--- NOTE | 2019-11-08 11:30 | NUR ---
RT NOTE: RR INCREASED TO 18
--- NOTE | 2019-11-08 12:00 | NUR ---
NEURO STATUS/RE-SEDATE PATIENT ABLE TO FOLLOW SIMPLE COMMANDS AFTER SEDATION VACATION ORDERED BY MD. WILL RE-SEDATE FOR COMFORT.
[2019-11-08] MEDS ORDERED: NOREPINEPHRINE 8 MG/250ML KIT 250 ML IV ONE (12:27)
--- NOTE | 2019-11-08 15:45 | NUR ---
HOSPITALIST AT BEDSIDE DR SANTILLAN UPDATED ON PATIENT'S STATUS, DRIPS, NEURO STATUS AFTER SEDATION VACATION. DOCTOR ALSO AWARE OF SPUTUM ECOLI. ORDERS RECEIVED AND WILL BE CARRIED OUT.
--- NOTE | 2019-11-08 18:30 | NUR ---
CARDIOLOGY AT BEDSIDE DR SCHNEIDER UPDATED ON PATIENT'S STATUS AND DRIPS. NO ORDERS AT THIS TIME.
[2019-11-08] MEDS: AMIODARONE HCL 200 MG TAB PO SCH (22:15)
[2019-11-09] VITALS (85 sets, daily range): BP systolic 80–132; BP diastolic 41–63
[2019-11-09] MEDS: ACCU-CHEK COMFORT CURVE STRIP VI SCH ×5 (04:00→20:00)
[2019-11-09] MEDS: InsuLIN REG 1unit/0.01ml Soln (100units/ml) SC SCH ×5 (04:29→20:00)
[2019-11-09 04:56] LABS: Basophils # (auto) 0 10 ^3/uL (0-0.2); Basophils % (auto) 0.2 % (0.0-2.0); Eosinophils # (auto) 0 10 ^3/uL (0-0.8); Hematocrit 35.6 % (41.0-53.0); Hemoglobin 11.4 g/dL (13.5-17.5); Lymphocytes # (auto) 1.5 10 ^3/uL (0.4-5.4); Lymphocytes % (auto) 9.7 % (10.0-50.0); Mean Corpuscular Hemoglobin 28.5 pg (28.0-32.0); Mean Corpuscular Hgb Conc. 32.1 g/dL (32.0-36.0); Monocytes # (auto) 1.8 10 ^3/uL (0-1.3); Monocytes % (auto) 11.7 % (0.0-12.0); Neutrophils # (auto) 12.3 10 ^3/uL (1.6-8.6); Neutrophils % (auto) 78.4 % (37.0-80.0); Platelet Count (auto) 168 10^3/uL (140-450); Red Cell Distribution Width 15.3 % (11.8-14.3); White Blood Cell 15.7 10^3/uL (4.4-10.8)
--- NOTE | 2019-11-09 05:08 | NUR ---
COMPLETE LINEN CHANGE AND BED BATH PERFORMED PT TOLERATED WELL.
[2019-11-09 05:13] LABS: BUN/Creatinine Ratio 39.5; Calcium 7.9 mg/dL (8.5-10.1); Magnesium 2.4 mg/dL (1.6-2.6); Potassium 4.4 mmol/L (3.5-5.1)
[2019-11-09] MEDS: MEROPENEM 1GM IVPB 100 ML IV SCH ×2 (06:00→22:00)
[2019-11-09] MEDS: FREE WATER GT SCH ×3 (06:00→12:00)
[2019-11-09] MEDS: NOREPINEPHRINE 8 MG/250ML KIT 250 ML IV SCH (08:23)
[2019-11-09] MEDS: ZINC SULFATE 220mg CAP or TAB PO SCH (09:37)
[2019-11-09] MEDS: CHOLECALCIFEROL (VITD3) 1,000UNIT=25mCg TAB PO SCH (09:38)
[2019-11-09] MEDS: ASCORBIC ACID 500 MG TAB PO SCH (09:38)
[2019-11-09] MEDS: PANTOPRAZOLE 40 MG/10 ML VIAL INJ IV SCH (10:00)
[2019-11-09] MEDS: ENOXAPARIN SOD 80 MG/0.8ML SYRINGE SC SCH ×2 (10:00→22:00)
[2019-11-09] MEDS: AZITHROMYCIN 500MG/ 250ML 250 ML IV SCH (10:00)
[2019-11-09] MEDS: FLUCONAZOLE 200MG/100ML 100 ML IV SCH (10:00)
[2019-11-09] MEDS: DexAMETHasone SOD PHOS 10MG/1ML VIAL INJ IV SCH (10:00)
--- NOTE | 2019-11-09 11:56 | NUR ---
D/C Planning Regarding social service consult for [facility]. Placed call to patient family member Jo-Ann regarding discharge plan to [facility]. Jo-Ann agrees for patient to be transfer to [facility]. Informed Jo-Ann clinical information will be faxed to [facility]. Faxed clinical information to facility. Pending acceptance. Jo-Ann verbalize understanding d/c plan.
--- NOTE | 2019-11-09 13:06 | NUR ---
Nutrition Followup/Consult Notes Pt wt is 88.0 kg Pt is covid positive in isolation. Pt intubated, NPO since 10/30 per RN doc. Consider starting alternate nutrition per MD approval. If pt GI is accessible consider Glucerna 1.2 with a goal rate of 70ml/hr. Noted Pt is active for D/C planning. Will continue to monitor PO status, skin status, pertinent labs and weight trends. Will f/u in 2-3 days. Est energy needs BW 81 [id number] kcal (23-25 kcal/kg BW) Est protein 65-81g (0.8-1.0g/kg elevated RFTs) Will reassess prn. LABS: GLUC 193H, A1c 7.7H, Ca 7.9L, Alb 1.7L GI: Pt is incontinent per RN doc BS: 14 mod risk. Refer to wound assessment report for full details. PES: 1) Altered nutrition related lab values r.t current chronic medical condition aeb elev RFT severe hypoalb 2) Inadequate PO intake r.t current medical condition aeb pt`s with COVID and PO recorded < 50% Comments 1) If Pt is NPO >48 and TF is recommended Consider Glucerna 1.2 with a goal rate of 70 ml/hr 2) Advance diet as medically feasible 3) Refer to CDE on DC 4) Continue current plan of care
--- NOTE | 2019-11-09 17:00 | NUR ---
WOUND CARE NOTE: Attempted to see patient for wound reevaluation/skin integrity monitoring. Patient's nurse just got came out of patient's room and unable to assist wound care, will try to see patient tomorrow.
[2019-11-09] MEDS: AMIODARONE HCL 200 MG TAB PO SCH (22:00)
[2019-11-10] VITALS (99 sets, daily range): BP systolic 91–127; BP diastolic 39–82
[2019-11-10] MEDS: InsuLIN REG 1unit/0.01ml Soln (100units/ml) SC SCH ×6 (02:17→20:36)
[2019-11-10] MEDS: ACCU-CHEK COMFORT CURVE STRIP VI SCH ×6 (04:00→20:12)
[2019-11-10] MEDS: FREE WATER GT SCH ×4 (06:00→17:03)
[2019-11-10] MEDS: MEROPENEM 1GM IVPB 100 ML IV SCH ×3 (06:00→22:18)
--- NOTE | 2019-11-10 06:40 | NUR ---
Respiratory note: MORNING ABG UNABLE TO BE OBTAINED. RN AWARE. WILL GET ANOTHER RT TO TRY.
[2019-11-10] MEDS: MIDAZOLAM DRIP 50 mg/50mL 50 ML IV SCH (07:12)
[2019-11-10] MEDS: NOREPINEPHRINE 8 MG/250ML KIT 250 ML IV SCH (08:23)
--- NOTE | 2019-11-10 10:01 | NUR ---
DR SANTILLAN IN AT 0950, SPOKE WITH DR AGUILAR AND OK FOR CPAP IF PATIENT WAKES UP OFF SEDATION AND MEETS CRITERIA/FOLLOWS COMMANDS. VERSED OFF AT THIS TIME.
--- NOTE | 2019-11-10 10:35 | NUR ---
Respiratory note: PT NOT AWAKE FOR CPAP TRIAL. RN AWARE.
[2019-11-10] MEDS: AZITHROMYCIN 500MG/ 250ML 250 ML IV SCH (11:07)
[2019-11-10] MEDS: ENOXAPARIN SOD 80 MG/0.8ML SYRINGE SC SCH ×2 (11:07→22:18)
[2019-11-10] MEDS: ASCORBIC ACID 500 MG TAB PO SCH (11:07)
[2019-11-10] MEDS: DexAMETHasone SOD PHOS 10MG/1ML VIAL INJ IV SCH (11:08)
[2019-11-10] MEDS: ZINC SULFATE 220mg CAP or TAB PO SCH (11:08)
[2019-11-10] MEDS: PANTOPRAZOLE 40 MG/10 ML VIAL INJ IV SCH (11:08)
[2019-11-10] MEDS: CHOLECALCIFEROL (VITD3) 1,000UNIT=25mCg TAB PO SCH (11:08)
--- NOTE | 2019-11-10 11:46 | NUR ---
D/C Planning Received follow up called from Bianca with [facility] at 11:44 advising me patient has been accepted to [facility], but has to be negative COVID if going to facility with a ETT Tube. If patient does not go with a ETT Tube to [facility] then patient needs to be [facility] or extubated, then he can go to facility being positive COVID.
[2019-11-10 12:11] LABS: Basophils # (auto) 0 10 ^3/uL (0-0.2); Basophils % (auto) 0.2 % (0.0-2.0); Eosinophils # (auto) 0 10 ^3/uL (0-0.8); Eosinophils % (auto) 0.1 % (0.0-7.0); Hemoglobin 11.6 g/dL (13.5-17.5); Lymphocytes # (auto) 1.3 10 ^3/uL (0.4-5.4); Lymphocytes % (auto) 12.2 % (10.0-50.0); Mean Corpuscular Hemoglobin 29.3 pg (28.0-32.0); Mean Corpuscular Volume 88.8 fL (80.0-100.0); Monocytes # (auto) 1.6 10 ^3/uL (0-1.3); Monocytes % (auto) 14.6 % (0.0-12.0); Neutrophils % (auto) 72.9 % (37.0-80.0); Nucleated Red Blood Cells % 0.1 %; Platelet Count (auto) 144 10^3/uL (140-450); Red Blood Cells 3.94 10^6/uL (4.5-5.90); Red Cell Distribution Width 15.6 % (11.8-14.3); White Blood Cell 10.9 10^3/uL (4.4-10.8)
[2019-11-10 12:13] LABS: Albumin 1.8 g/dL (3.4-5.0); BUN/Creatinine Ratio 41.3; Calcium 7.9 mg/dL (8.5-10.1); Potassium 4.3 mmol/L (3.5-5.1)
[2019-11-10 12:16] LABS: Bilirubin, Total 0.6 mg/dL (0.2-1.0); Total Protein 5.4 g/dL (6.4-8.2)
[2019-11-10] MEDS: FLUCONAZOLE 200MG/100ML 100 ML IV SCH (13:04)
--- NOTE | 2019-11-10 14:20 | NUR ---
Respiratory note: FINAL VENT CHECK DONE. NO CHANGES MADE AT THIS TIME. PT IS STILL ASLEEP NOT ABLE TO DO CPAP TRIAL. RN NOTIFY. ABG OBTAINED. PT'S BREATH SOUNDS ARE COARSE, SUCTION MODERATE THICK YELLOW SECRETIONS. WATER LEVEL ON HEATER ADEQUATE. ASSIST TURN ON VIA BED WITHOUT INCIDENT. WILL ENDORSE PT'S CARE TO NOC RT.
--- NOTE | 2019-11-10 18:00 | NUR ---
DR MCKEON AT BEDSIDE AWARE PATIENT IS NOT AWAKE ENOUGH AND VERSED OFF SINCE ABOUT 1001. DR GAVE ORDER FOR LEVI MAKER TO USE PROPOFOL INSTEAD OF VERSED IF AWAKENS OVERNIGHT AND ATTEMPT CPAP IF CRITERIA IS MET AND ABLE TO FOLLOW COMMANDS IN AM.
--- NOTE | 2019-11-10 19:30 | NUR ---
DR AGUILAR IN UNIT AND AWARE SODIUM LEVEL IS 135 OK TO DC FREE WATER. REPORT GIVEN TO AMALIA REED
[2019-11-10] MEDS: PROPOFOL 100 ML IV SCH (20:00)
--- NOTE | 2019-11-10 20:00 | NUR ---
OPEN NOTES RECEIVED PATIENT COVID POSITIVE ON ISOLATION OPEN EYES TO STIMULI, NOT FOLLOWING COMMANDS YET. SEDATION TURNED OFF AT 1000HRS. INTUBATED AND VENTILATED ON AC MODE, FIO2 30%. SUCTIONED SMALL AMOUNT CREAMY YELLOWISH SECRETIONS. SATS 90-92% VS STABLE. ON IV LEVOPHED - WILL WEAN OFF. OGT -CLAMPED, PLACEMENT CHECKED REPOSITIONED, ORAL CARE DONE FULL ASSESSMENT DONE- REFER INTERVENTIONS WILL CONTINUE TO MONITOR
[2019-11-10] MEDS: AMIODARONE HCL 200 MG TAB PO SCH (22:18)
[2019-11-11] VITALS (97 sets, daily range): BP systolic 84–150; BP diastolic 48–77
[2019-11-11] MEDS: ACCU-CHEK COMFORT CURVE STRIP VI SCH ×6 (00:30→19:53)
[2019-11-11] MEDS: InsuLIN REG 1unit/0.01ml Soln (100units/ml) SC SCH ×6 (00:40→20:05)
--- NOTE | 2019-11-11 03:50 | NUR ---
CENTRAL LINE DRESSING CHANGED NOTED SOME OLD BLOOD FROM THE INSERTION SITE. NO ACTIVE BLEEDING NOTED DRESSING CHANGED. CLEANED WITH CHG SWABS.
--- NOTE | 2019-11-11 04:00 | NUR ---
HYGIENE PATIENT CLEANED WITH CHG WIPES. LINENS CHANGED. REPOSITIONED. ORAL CARE DONE SUCTIONED
--- NOTE | 2019-11-11 04:10 | NUR ---
PATIENT IS MORE AWAKE, FOLLOWING COMMANDS NOW STILL WEAK
[2019-11-11 04:39] LABS: Hematocrit 35.5 % (41.0-53.0); Hemoglobin 11.6 g/dL (13.5-17.5); Mean Corpuscular Hemoglobin 28.9 pg (28.0-32.0); Mean Corpuscular Hgb Conc. 32.8 g/dL (32.0-36.0); Mean Corpuscular Volume 88.2 fL (80.0-100.0); Platelet Count (auto) 156 10^3/uL (140-450); Red Blood Cells 4.03 10^6/uL (4.5-5.90); Red Cell Distribution Width 15.3 % (11.8-14.3); White Blood Cell 11.1 10^3/uL (4.4-10.8)
[2019-11-11 04:44] LABS: Basophils % (manual) 0 (0.0-2.0); Blast Cells 0; Eosinophils % (manual) 0 (0-7); Metamyelocytes % 0; Myelocytes % 0; Promyelocytes % 0; Reactive Lymphocytes 0
[2019-11-11 04:55] LABS: BUN/Creatinine Ratio 41.4; Calcium 8.2 mg/dL (8.5-10.1); Potassium 4.6 mmol/L (3.5-5.1)
[2019-11-11 05:22] LABS: Band Neutrophils % (manual) 2; Lymphocytes % (manual) 8 (10.0-50.0); Monocytes % (manual) 7 (0-12)
[2019-11-11] MEDS ORDERED: IPRATROPIUM BROM 0.5 MG/2.5ML INH SOL ONE (06:21)
[2019-11-11] MEDS ORDERED: ALBUTEROL SULF 2.5 MG/0.5ML(0.5%) NEB SOLN ONE (06:21)
[2019-11-11] MEDS ORDERED: BUDESONIDE (INHALATION) 0.5 MG/2 ML NEB ONE (06:21)
[2019-11-11] MEDS: MIDAZOLAM DRIP 50 mg/50mL 50 ML IV SCH (07:07)
--- NOTE | 2019-11-11 07:40 | NUR ---
REPORT RECEIVED ASSUMING CARE
[2019-11-11] MEDS: MEROPENEM 1GM IVPB 100 ML IV SCH ×3 (07:42→21:57)
--- NOTE | 2019-11-11 10:00 | NUR ---
SPOKE WITH DR AGUILAR, AWARE PATIENT FOLLOWS MOST COMMANDS AND IS APPROPRIATE BUT DOES NOT BREATH OVER VENT AND IS WEAK (UNABLE TO LIFT HEAD UP OFF PILLOW). DR AWARE CXR RESULTS SHOW WORSENING OF INFILTRATES AND AWARE OF ABG RESULTS/VENT SETTINGS. DR STATED TO HOLD OFF ON CPAP TRIAL UNTIL MORE AWAKE.
--- NOTE | 2019-11-11 10:27 | NUR ---
Nutrition Followup Notes Wt: 79.9 kg Pt is covid positive in isolation. Pt intubated, NPO with no new diet orders. pt off propofol today Est energy needs BW 81 [id number] kcal (23-25 kcal/kg BW), Est protein 65-81g (0.8-1.0g/kg elevated RFTs). Will reassess prn. LABS: BUN 41 H, CA 8.2 L. GI: Pt had 2 BM on 10/25 per RN doc BS: 14 mod risk. Refer to wound assessment report for full details. PES: 1) Altered nutrition related lab values r.t current chronic medical condition aeb elev RFT severe hypoalb 2) Inadequate PO intake r.t current medical condition aeb pt`s with COVID and PO recorded < 50% Comments 1) If Pt is NPO >48 and TF is recommended Consider Glucerna 1.2 with a goal rate of 65 ml/hr. 2) Advance diet as medically feasible 3) Refer to CDE on DC. 4) Continue current plan of care
--- NOTE | 2019-11-11 10:45 | NUR ---
SPONTANEOUS BREATHING TRIAL INITIATED, PS 7, PEEP5. PT OFF SEDATION, AWAKE AND FOLLOWS COMMANDS. CPAP TRIAL EXPLAINED TO PT. PT SHAKES HIS HEAD "NO " WHEN TOLD HE IS GOING TO BREATHE ON HIS OWN. PT IMMEDIATELY FAILED CPAP DUE TO APNEA. BRIANNA PRICE AWARE.
--- NOTE | 2019-11-11 10:45 | NUR ---
PT PLACED BACK ON AC MODE ON PREVIOUS VENTILATOR SETTINGS.
[2019-11-11] MEDS: ENOXAPARIN SOD 80 MG/0.8ML SYRINGE SC SCH ×2 (10:59→21:58)
[2019-11-11] MEDS: CHOLECALCIFEROL (VITD3) 1,000UNIT=25mCg TAB PO SCH (10:59)
[2019-11-11] MEDS: ZINC SULFATE 220mg CAP or TAB PO SCH (10:59)
[2019-11-11] MEDS: ASCORBIC ACID 500 MG TAB PO SCH (10:59)
[2019-11-11] MEDS: PANTOPRAZOLE 40 MG/10 ML VIAL INJ IV SCH (10:59)
--- NOTE | 2019-11-11 11:00 | NUR ---
LOVENOX HELD DUE TO CONSTANT OOZING BLOOD FROM RIGHT IJ TLC SITE, DSG CHANGED COMPLETED USING ASEPTIC TECHNIQUE DUE TO SATURATION OF BLOOD. PATIENT TOLERATED WELL. FOLLOWS MOST COMMANDS AND SHAKES HEAD YES/NO APPROPRIATELY TO QUESTIONS. RN ONLY WITNESSED MOVEMENT OF RIGHT LEG/ARM/HAND POSSIBLY DUE TO H/O CVA WITH LEFT SIDE DEFICIT.
[2019-11-11] MEDS: DexAMETHasone SOD PHOS 10MG/1ML VIAL INJ IV SCH (11:02)
[2019-11-11] MEDS: NOREPINEPHRINE 8 MG/250ML KIT 250 ML IV SCH (11:41)
[2019-11-11] MEDS: AZITHROMYCIN 500MG/ 250ML 250 ML IV SCH (11:41)
[2019-11-11] MEDS: FLUCONAZOLE 200MG/100ML 100 ML IV SCH (11:41)
--- NOTE | 2019-11-11 13:00 | NUR ---
WOUND CARE NOTE: IN TO SEE PATIENT AT THIS TIME FOR SKIN INTEGRITY MONITORING. PATIENT CONTINUES TO BE INTUBATED. HE HAS CURRENT FARNAZ SCORE OF 14. PATIENT IS AIRBORNE ISOLATION FOR COVID19. TURNED PATIENT TO THE LEFT SIDE TO VIEW PATIENT'S SACRUM. HE CONTINUES TO HAVE A STAGE PRESSURE INJURY TO THE RIGHT BUTTOCK, MEASURING 2.5 X 1 DM. WOUND IS DRAINING LIGHT AMOUNTS OF SEROUS DRAINAGE. WOUND APPEARS TO BE IMPROVING, IT APPEARS SMALLER THAN AT LAST EXAM. APPLIED ZGUARD, OPTIFOAM GENTLE DRESSING PER MD ORDER. POSTERIOR SCROTAL MASD WITH SKIN EROSION IS MUCH IMPROVED. THERE IS A VERY SMALL 0.2 X 0.2 CM EROSION NOTED. APPLIED ZGUARD TO SKIN. XEROSIS TO BILATERAL FEET IS MUCH IMPROVED, WITH LESS FLAKING SKIN AREAS. HE CONTINUES TO HAVE SMALL INTACT SCABBED ABRASIONS AND SCRATCHES TO BOTH FEET. NEW WOUND PHOTOS TAKEN OF ALL SKIN INTEGRITY AREAS FOR REFERENCE. RECOMMEND: CONTINUATION WITH ALL WOUND CARE ORDERS PREVIOUSLY PRESCRIBED BY MD. WOUND CARE TEAM WILL CONTINUE TO MONITOR. Addendum: 11/11/19 at 1608 by Jamila Baker RN Amended: Links added.
--- NOTE | 2019-11-11 14:00 | NUR ---
RN PULLED OUT PROPOFOL FOR POSSIBLE SEDATION AND SPIKED BOTTLE ON IV POLE, DID NOT START DUE TO PATIENT CALMED DOWN AND MORE AIR INSERTED INTO ETT CUFF DUE TO LEAK. RT AWARE AND PATIENT STABLE. Addendum: 11/11/19 at 1921 by Triston Rubio RN JOHN REMAINS HANGING ON IV POLE NOT INFUSING BUT READY FOR GYROSCOPIC ENGINEERING TECHNICIAN IN CASE PATIENT IN NEED OF SEDATION.
--- NOTE | 2019-11-11 15:10 | NUR ---
Assumed care of patient endorsed by primary RN while on break. Will continue to monitor.
--- NOTE | 2019-11-11 16:30 | NUR ---
DR MCKEON AT BEDSIDE, GAVE ORDER TO START ANOTHER CPAP TRIAL. RT ANNELIESE AWARE.
--- NOTE | 2019-11-11 16:37 | NUR ---
SECOND CPAP TRIAL INITIATED AT THIS [facility] PER DR MCKEON. PT FAILED DUE TO APNEA. AND BRIANNA JOHNSON.
--- NOTE | 2019-11-11 18:00 | NUR ---
DSG CHANGED COMPLETED FOR SECOND TIME TO RIGHT IJ TLC USING ASEPTIC TECHNIQUE DUE TO SATURATION OF BLOOD. PATIENT TOLERATED WELL.
[2019-11-11] MEDS: PROPOFOL 100 ML IV SCH (19:09)
--- NOTE | 2019-11-11 19:13 | NUR ---
PER DIETARY NOTE TODAY AND PER DR MCKEON NOTE GLUCERNA 1.2 ORDERED WITH GOAL RATE OF 65 ML/HR
--- NOTE | 2019-11-11 19:13 | NUR ---
REPORT GIVEN TO AMALIA REED
[2019-11-11] MEDS ORDERED: Glucerna 1.2 Cal 1Liter BOTTLE GT SCH (19:15)
--- NOTE | 2019-11-11 20:00 | NUR ---
OPEN NOTES RECEIVED PATIENT COVID POSITIVE ON ISOLATION AWAKE,OPEN EYES SPONTANEOUSLY, NODS HEAD WHEN ASKED, OBEY SIMPLE COMMANDS. INTUBATED AND VENTILATED ON AC MODE, FIO2 35%. SUCTIONED MODERATE AMOUNT OF ORAL SECRETIONS,SPO2 96% BREATHING COMFORTABLY VS STABLE. NOT ON ANY PRESSOR RIGHT NOW. OGT -CLAMPED, PLACEMENT CHECKED REPOSITIONED, ORAL CARE DONE FULL ASSESSMENT DONE- REFER INTERVENTIONS WILL CONTINUE TO MONITOR
--- NOTE | 2019-11-11 20:10 | NUR ---
CENTRAL LINE DRESSING CHANGED CENTRAL LINE DRESSING PEELING OFF, WITH SOME BLEEDING ON THE SITE NOTED. CLEANED WITH CHG SWABS, APPLIED A PRESSURE. BLEEDING STOPPED. COVERED WITH NEW DRESSING. WILL CONTINUE TO MONITOR. WILL HOLD LOVENOX ALSO TONIGHT. Addendum: 11/12/19 at 0526 by Diana Tay RN BLUE PORT WAS BLOCKED WHEN THIS RN CHECKED THE PORT UPON ASSESSMENT
[2019-11-11] MEDS: AMIODARONE HCL 200 MG TAB PO SCH ×2 (21:57→22:00)
--- NOTE | 2019-11-11 22:16 | NUR ---
AMIODARONE HR 70'S EARLIER BUT WHEN THIS RN WENT INSIDE THE ROOM , HR WAS 59-60/MIN ONLY WILL HELD AMIODARONE FOR TONIGHT
[2019-11-12] VITALS (94 sets, daily range): BP systolic 75–137; BP diastolic 45–79
--- NOTE | 2019-11-12 00:20 | NUR ---
PATIENT REMAINED AWAKE AND OBEYING COMMANDS MITTENS KEPT BECAUSE PATIENT KEEP ON POINTING TO HIS ETT - TO PREVENT ACCIDENTAL DISLODGEMENT
[2019-11-12] MEDS: InsuLIN REG 1unit/0.01ml Soln (100units/ml) SC SCH ×6 (00:42→20:30)
[2019-11-12] MEDS: ACCU-CHEK COMFORT CURVE STRIP VI SCH ×6 (00:42→20:00)
--- NOTE | 2019-11-12 00:50 | NUR ---
PATIENT BATHE SPONGE BATH DONE LINENS CHANGED ORAL CARE DONE
--- NOTE | 2019-11-12 02:00 | NUR ---
BP LOW PATIENT'S SBP 75-85 MMHG - RESTARTED IV LEVOPHED WILL TITRATE TO KEEP SBP >90 MMHG Addendum: 11/12/19 at 0202 by Diana Tay RN HR 53/MIN PATIENT RESTING
--- NOTE | 2019-11-12 04:00 | NUR ---
LEVOPHED WEANED OFF
[2019-11-12 04:53] LABS: Basophils # (auto) 0 10 ^3/uL (0-0.2); Basophils % (auto) 0.1 % (0.0-2.0); Eosinophils # (auto) 0 10 ^3/uL (0-0.8); Hematocrit 33.2 % (41.0-53.0); Hemoglobin 10.8 g/dL (13.5-17.5); Lymphocytes # (auto) 1.3 10 ^3/uL (0.4-5.4); Lymphocytes % (auto) 11.8 % (10.0-50.0); Mean Corpuscular Hemoglobin 28.8 pg (28.0-32.0); Mean Corpuscular Hgb Conc. 32.5 g/dL (32.0-36.0); Mean Corpuscular Volume 88.3 fL (80.0-100.0); Monocytes # (auto) 1.5 10 ^3/uL (0-1.3); Monocytes % (auto) 13.1 % (0.0-12.0); Neutrophils # (auto) 8.4 10 ^3/uL (1.6-8.6); Platelet Count (auto) 135 10^3/uL (140-450); Red Blood Cells 3.76 10^6/uL (4.5-5.90); Red Cell Distribution Width 15.5 % (11.8-14.3); White Blood Cell 11.3 10^3/uL (4.4-10.8)
[2019-11-12 05:12] LABS: BUN/Creatinine Ratio 48.8; Calcium 7.9 mg/dL (8.5-10.1); Potassium 4.3 mmol/L (3.5-5.1)
[2019-11-12] MEDS: MEROPENEM 1GM IVPB 100 ML IV SCH ×3 (06:00→22:00)
--- NOTE | 2019-11-12 06:30 | NUR ---
PATIENT REMAINED AWAKE AND OBEYING COMMANDS
--- NOTE | 2019-11-12 06:45 | NUR ---
MEROPENEM NOT GIVEN YET- NO STOCK IN [facility] WILL CALL PHARMACY
--- NOTE | 2019-11-12 07:00 | NUR ---
Received bedside hand off report PM RN Patient awake but drifts into sleep. When he falls asleep he shallows breathes and at times becomes apeanic. Discussed with patient parameters for extubation, patient understands. Patient nods head regarding sleep apnea and low BP as his baseline. Plan is to CPAP after discussing with RT and a.m. ABG. Mittens off of patient as he is following commands, understands touching is okay but pulling is not. Will monitor compliance and understanding. Patient remains on FIO2 35 %, without sedation. Cough and gag present, though weak. Patient moves upper extremities right arm spontaneous with fluid coordination. Patient left sided weakness from CVA. Patient is NS-antony to NSR with BBB as baseline since stay. Patient is afebrible. Urine output yellow, clear to folley catheter. No BM during last shift. Tube feeding on hold for CPAP. Assumed care of patient.
[2019-11-12] MEDS: MIDAZOLAM DRIP 50 mg/50mL 50 ML IV SCH ×2 (07:07→23:31)
--- NOTE | 2019-11-12 08:00 | NUR ---
PHARMACY has been called no Shahidpenum in [facility]. They are sending up.
[2019-11-12] MEDS: NOREPINEPHRINE 8 MG/250ML KIT 250 ML IV SCH (08:23)
[2019-11-12] MEDS: DexAMETHasone SOD PHOS 10MG/1ML VIAL INJ IV SCH (10:06)
[2019-11-12] MEDS: FLUCONAZOLE 200MG/100ML 100 ML IV SCH (10:06)
[2019-11-12] MEDS: ZINC SULFATE 220mg CAP or TAB PO SCH (10:07)
[2019-11-12] MEDS: AZITHROMYCIN 500MG/ 250ML 250 ML IV SCH (10:07)
[2019-11-12] MEDS: PANTOPRAZOLE 40 MG/10 ML VIAL INJ IV SCH (10:07)
[2019-11-12] MEDS: ENOXAPARIN SOD 80 MG/0.8ML SYRINGE SC SCH ×2 (10:08→22:00)
[2019-11-12] MEDS: ASCORBIC ACID 500 MG TAB PO SCH (10:08)
[2019-11-12] MEDS: CHOLECALCIFEROL (VITD3) 1,000UNIT=25mCg TAB PO SCH (10:08)
--- NOTE | 2019-11-12 10:55 | NUR ---
CPAP TRIAL STARTED , WITH PEEP 5, PS 8,FIO2 35%. PT. IS AWAKE AND ALERT, FOLLOWS COMMANDS. NO RESP. DISTRESS NOTED. PT'S AVERAGE VT IS ABOUT 250 AT REST. PT. WILL GET 350-400 WHEN YOU ASK HIM TO TAKE DEEPER BREATHS. PT. TOLERATING WELL AT THIS TIME, WILL CONTINUE TO MONITOR RESP. STATUS.
--- NOTE | 2019-11-12 10:55 | NUR ---
Patient started on CPAP trial, patient teaching regarding extubation parameters and goals. Patient nods in undertanding. RN bedside outside of glass doors to remind patient to breathe deeply and to not fall asleep as he becomes apneic.
--- NOTE | 2019-11-12 11:20 | NUR ---
RN bedside outside of glass watching and coaching patient to breathe, stay awake and to take in larger volumes of air.
--- NOTE | 2019-11-12 11:50 | NUR ---
RN bedside in room during CPAP trial to reposition patient and for oral care. Patient has remained awake during most of trial which prevents him from becoming apneaic.
--- NOTE | 2019-11-12 12:35 | NUR ---
RT entering bedside for ABG, patient remains on CPAP, TV unless coached 250's, SPO2 99-100%, RR 17.
--- NOTE | 2019-11-12 13:00 | NUR ---
Patient completed 2 hours CPAP, ABG was drawn by RT. Per Dr. Nain soto to extubated patient, PRN BIpap and non rebreather mask.
--- NOTE | 2019-11-12 13:38 | NUR ---
Patient extubated at 1338 by RT who was bedside RN not bedside d/t PAPR necessity. Patient smiling and lifting thumb up post extubation, RN bedside on other side of glass. Patient put on facemask with breathing treatment. SPO2 91% HR 68 RR 258 BP 106/46. Patient instructed to cough. RT bedside suctioning.
--- NOTE | 2019-11-12 13:38 | NUR ---
PT. EXTUBATED, PER DR. MCKEON'S T.O. , PLACED PT. ON 10LPM SIMPLE MASK, SP02 99%,RR=19, HR=61. BS. ARE CLEAR BILATERALLY WITHOUT STRIDOR. PT. LOOKS RELAXED WITH NO DISTRESS, WILL CONTINUE TO MONITOR RESP. STATUS.
--- NOTE | 2019-11-12 13:42 | NUR ---
RT bedside, post extubation, lungs clear no stridor. HR 62 SPO2 99% RR 15 BP 106/46 Temp 97.5 F. On face mask 10L, Patient in no distress.
--- NOTE | 2019-11-12 14:01 | NUR ---
RN bedside, patient is post extubation, lung sounds clear, no stridor. Face mask 10L SPO2 100% RR 22 , patient AOx4 in no signs of distress, going in and out of sleep cycle.
--- NOTE | 2019-11-12 15:13 | NUR ---
Patients daughter Jo-Ann called for update on status and plan of care. RN discussed retesting for COVID 19 and post acute care and transfer once primary physician has seen the patient. All answers questioned.
--- NOTE | 2019-11-12 15:42 | NUR ---
RT bedside for NT suctioning, SPO2 97% post suctioning. Patient remains on facemask 10L.
--- NOTE | 2019-11-12 15:43 | NUR ---
COVID 19 RETEST RN swabbed and nuclear unit operator walked up in-house covid test.
--- NOTE | 2019-11-12 15:45 | NUR ---
PT'S SATURATION 85-90% ON 10LPM SIMPLE MASK. PT. NTS'D FOR LARGE AMOUNT OF CLEAR TO BLOOD TINGED SECRETIONS. SATURATION CAME BACK UP TO 97% ON 10L SIMPLE MASK. NO RESP. DISTRESS NOTED AT THIS TIME, WILL CONTINUE TO MONITOR RESP. STATUS AND 02 SATS.
--- NOTE | 2019-11-12 18:00 | NUR ---
Downgrade - in morning 11/13/19 per Hospitalist.
--- NOTE | 2019-11-12 18:30 | NUR ---
am SHIFT SUMMARY Patient extubated at 1348 after 2 hours CPAP. On face mask 10L SPO2 92-98% RR 18-22, in no signs of distress. Patient NPO until swallow evaluation. Oral care with water only, patients upper gums are very tender. In NSR with lowest HR 48 highest 89. Patient maintained BP 110's systolic. 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 No BM, active bowel sounds, no tube feeding d/t CPAP and extubation, diet recommendation post swallow. Last BSC 132, coverage per protocol. Cadena catheter 950 ml clear yellow urine. Wounds unchanged, family updated on status. Downgrade in a.m. if stable per primary physician.
--- NOTE | 2019-11-12 19:34 | NUR ---
Report given to Gwendolyn REED
--- NOTE | 2019-11-12 20:00 | NUR ---
Opening Shift Note: A&Ox3-4, delayed response time. Currently on 10LO2 via simple mask; patient was extubated today at 1348 per report. Pain level 0/10 and is currently bedrest; per progress notes that patient uses a wheelchair at baseline. Bed locked in lowest position, side rails up x2, call light within reach, and bed alarm on for patient safety. IV left hand 22 g inserted on 11/01/19 and Right IJ TLC inserted on 11/01/19. Cadena inserted on 11/01/19 for strict I/O. Skin: multiple issues see charting. Patient is pending a swallow evaluation for post extubation protocol; currently NPO. Patient is on COVID precautions; pending results of COVID reswab. Will continue to round, reposition, and perform oral care prn.
[2019-11-12] MEDS: AMIODARONE HCL 200 MG TAB PO SCH (22:00)
[2019-11-12] MEDS: PROPOFOL 100 ML IV SCH (23:28)
[2019-11-13] VITALS (89 sets, daily range): BP systolic 75–163; BP diastolic 51–88
--- NOTE | 2019-11-13 01:07 | NUR ---
Negative COVID results per microbiology.
[2019-11-13] MEDS: InsuLIN REG 1unit/0.01ml Soln (100units/ml) SC SCH ×5 (04:00→19:59)
[2019-11-13] MEDS: ACCU-CHEK COMFORT CURVE STRIP VI SCH ×5 (04:00→20:00)
--- NOTE | 2019-11-13 05:00 | NUR ---
Patient bathe/linen change Patient given complete CHG bath. Skin integrity assessed for any changes; optifoam on sacrum changed. Linens and gown changed. Patient repositioned for comfort. Patient's rectal temp is 96.1, warming measures initiated.
[2019-11-13] MEDS: MEROPENEM 1GM IVPB 100 ML IV SCH (05:17)
--- NOTE | 2019-11-13 07:10 | NUR ---
Report received from Gwendolyn REED Assumed care of patient. COVID 19 test 11/12/2019 was negative. Per ICU Director patient needs a second test in order to transfer within hospital, will order and complete. Patient remains AOx4, on facemask 10L, calm and in no distress. Patient temperatures have been runing 95.5-97.5F, RN put patient on bearhugger machine. Awaiting swallow evaluation, PT/OT. Patent das catheter, IV access patent. No bowel movement p.m. shift.
[2019-11-13] MEDS: NOREPINEPHRINE 8 MG/250ML KIT 250 ML IV SCH (08:23)
[2019-11-13] MEDS: ASCORBIC ACID 500 MG TAB PO SCH (10:00)
[2019-11-13] MEDS: FLUCONAZOLE 200MG/100ML 100 ML IV SCH (10:00)
--- NOTE | 2019-11-13 10:00 | NUR ---
Dr. Lares Bedside. New orders to downgrade to Telemetry and transfer to [facility] after second COVID 19 swab.
[2019-11-13] MEDS: DexAMETHasone SOD PHOS 10MG/1ML VIAL INJ IV SCH (10:36)
[2019-11-13] MEDS: PANTOPRAZOLE 40 MG/10 ML VIAL INJ IV SCH (10:36)
[2019-11-13] MEDS: ZINC SULFATE 220mg CAP or TAB PO SCH (10:38)
[2019-11-13] MEDS: AZITHROMYCIN 500MG/ 250ML 250 ML IV SCH (10:38)
[2019-11-13] MEDS: CHOLECALCIFEROL (VITD3) 1,000UNIT=25mCg TAB PO SCH (10:39)
[2019-11-13] MEDS: ENOXAPARIN SOD 80 MG/0.8ML SYRINGE SC SCH ×2 (10:39→21:30)
[2019-11-13] MEDS: AMIODARONE HCL 200 MG TAB PO SCH (12:45)
--- NOTE | 2019-11-13 14:51 | NUR ---
Nutrition Followup Notes Wt: 77.7 kg Pt is covid positive in isolation. Pt is intubated, NPO, pending CPAP trial with no new diet orders. Est energy needs BW 81 [id number] kcal (23-25 kcal/kg BW), Est protein 65-81g (0.8-1.0g/kg elevated RFTs). Will reassess prn. LABS: A1c 7.7 H, Alb 1.8 L GI: Pt had no BM today per RN doc BS: 13 mod risk. Refer to wound assessment report for full details. PES: 1) Altered nutrition related lab values r.t current chronic medical condition aeb elev RFT severe hypoalb 2) Inadequate PO intake r.t current medical condition aeb pt`s with COVID and PO recorded < 50% Comments 1) If Pt is NPO >48 and TF is recommended Consider Glucerna 1.2 with a goal rate of 65 ml/hr. 2) Advance diet as medically feasible 3) Refer to CDE on DC. 4) Continue current plan of care
--- NOTE | 2019-11-13 15:30 | NUR ---
RN bedside with patient lunch of pureed diet as prescribed post speech/swallow evaluation. Several minutes into the as the RN was waiting for the patient to swallow his food and patient did not swallow, RN then suctioned his mouth. Patients O2 went from 88% to 81% with RR up to 25, RN called for NT suctioning kit and RT. RN then put patient on non rebreather and had suctioning on standby.
[2019-11-13] MEDS ORDERED: ETOMIDATE (2MG/ML) 20ML VIAL IV ONE (16:15)
[2019-11-13] MEDS ORDERED: SUCCINYLCHOLINE CHLORIDE 20 MG/ML 10ML VIAL IV ONE (16:15)
--- NOTE | 2019-11-13 16:22 | NUR ---
Patient intubated bedside at 1622 ETT 7.5 24" lip. Patient given Succ 100mg (5mL) and Etomidate 20 mg (10mL) as verbal order Dr. Feng. Mechanical ventilation settings AC rate 18 TV 450 PEEP 10 FIO2 100%. Post intubation suctioning yellow, thick , moderate amount of secretions.
--- NOTE | 2019-11-13 17:10 | NUR ---
Patient started on Levophed post intubation.
--- NOTE | 2019-11-13 19:30 | NUR ---
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 Patient was extubated on 11/12/19 but reintubated today at 1622 related to aspiration per report. ET size 7.5/24 @ lip. Settings: AC rate 18, vT 450, FiO2 100%, PEEP 8. Pain level 0/10 and is currently bedrest; per progress notes that patient uses a wheelchair at baseline. Bed locked in lowest position, side rails up x2, call light within reach, and bed alarm on for patient safety. IV left hand 22 g inserted on 11/01/19 and Right IJ TLC inserted on 11/01/19 running Levo @ 6. Cadena inserted on 11/01/19 for strict I/O. Skin: multiple issues see charting. Patient is on COVID precautions; pending results of second COVID reswab. First reswab was negative. Will continue to round, reposition, and perform oral care prn.
[2019-11-13] MEDS ORDERED: NOREPINEPHRINE 8 MG/250ML KIT 250 ML IV PRN (19:45)
[2019-11-13] MEDS: PROPOFOL 100 ML IV SCH (20:03)
--- NOTE | 2019-11-13 20:30 | NUR ---
Second COVID reswab is negative. EVS paged for a clean of the room. Precautions discontinued. Attempted to call NOK/daughter Jo-Ann to update but did not answer. Message was left.
[2019-11-13] MEDS: CEFEPIME 1 GM in NS 0.9% 50 ML IV SCH (21:30)
[2019-11-13] MEDS: fentaNYL Drip 2500mCg/250mlNS 250 ML IV SCH (21:30)
--- NOTE | 2019-11-13 21:30 | NUR ---
Insertion of 14 F NGT into left nare. CXR ordered per protocol for placement check.
[2019-11-14] VITALS (96 sets, daily range): BP systolic 81–136; BP diastolic 44–77
[2019-11-14] MEDS: InsuLIN REG 1unit/0.01ml Soln (100units/ml) SC SCH ×6 (00:36→20:00)
[2019-11-14] MEDS: ACCU-CHEK COMFORT CURVE STRIP VI SCH ×6 (00:36→20:45)
[2019-11-14] MEDS: MIDAZOLAM DRIP 50 mg/50mL 50 ML IV SCH (04:30)
[2019-11-14] MEDS: CEFEPIME 1 GM in NS 0.9% 50 ML IV SCH ×2 (04:30→14:10)
--- NOTE | 2019-11-14 07:30 | NUR ---
Opening Shift Note Assumed care of patient, intubated and sedated. No S/S of distress/SOB or pain. LT nare NGT clamped. Moderated amount of dark red blood clots coming out of patient's mouth, oral care rendered. See interventions for complete assessment. Bed locked on low position, side rails up x2, bed alarms on at all times, call delgado within reach, instructed on POC and to call for assist PRN, will continue to monitor for changes Q1hr and PRN.
--- NOTE | 2019-11-14 08:23 | NUR ---
Received call from patient's daughter JoA-nn who's able to provide password. Updated on patient's status and POC, verbalized understanding. All questions and concerns addressed.
--- NOTE | 2019-11-14 09:00 | NUR ---
Received call from Lynn, needed information provided.
[2019-11-14] MEDS: PANTOPRAZOLE 40 MG/10 ML VIAL INJ IV SCH (09:49)
[2019-11-14] MEDS: FLUCONAZOLE 200MG/100ML 100 ML IV SCH (09:49)
[2019-11-14] MEDS: ASCORBIC ACID 500 MG TAB PO SCH (09:50)
[2019-11-14] MEDS: CHOLECALCIFEROL (VITD3) 1,000UNIT=25mCg TAB PO SCH (09:50)
[2019-11-14] MEDS: ZINC SULFATE 220mg CAP or TAB PO SCH (09:50)
[2019-11-14] MEDS ORDERED: DexAMETHasone SOD PHOS 4 MG/1ML SDV INJ IV ONE (10:00)
--- NOTE | 2019-11-14 10:32 | NUR ---
Dr Vazquez at bedside, updated on patient's status. Patient seen and examined. Will carry out new orders.
--- NOTE | 2019-11-14 10:55 | NUR ---
Respiratory note: PAGED TO ROOM. PT SP02 IN THE 80'S. I INCREASED TO 100% FI02. SP02 INCREASED TO 98%. WILL START TO TITRATE TOLERATED.
--- NOTE | 2019-11-14 11:00 | NUR ---
Patient saturation dropped to low 80's, Teri RT at bedside, patient FIO2 increased to 100%, saturation increased to 90's. Will continue to monitor patient.
--- NOTE | 2019-11-14 14:18 | NUR ---
Received call from Dr Slater, updated on patient's status. MD to do Tracheostomy on , NPO after midnight Wednesday per MD. Read back and verified. Will carry out.
--- NOTE | 2019-11-14 15:14 | NUR ---
Dr Lares at bedside, updated on patient's status. Patient seen and examined. To check labs in am per MD. Read back and verified. Will carry out new orders
--- NOTE | 2019-11-14 15:30 | NUR ---
Central line dressing soaked with blood, dressing change done with a sterile technique. Cleansed with chloraprep scrub/betadine, bio-patch as available. Occlusive dressing applied. Patient tolerated well.
--- NOTE | 2019-11-14 16:00 | NUR ---
Patient's saturation dropped to low 80's, endotracheal and oropharyngeal suctioning done. Patient given 100% oxygen, saturation increased above 92%. Teri RT at bedside. Will continue to monitor patient.
[2019-11-14] MEDS ORDERED: VANCOMYCIN PER PHARMACY 0 MG IV SCH (18:00)
[2019-11-14] MEDS: VANCOMYCIN 1GM/250ML 250 ML IV SCH (18:05)
[2019-11-14] MEDS: PROPOFOL 100 ML IV SCH (19:09)
--- NOTE | 2019-11-14 19:30 | NUR ---
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 Patient was extubated on 11/12/19 but reintubated on 11/13/19 at 1622 related to aspiration per report. ET size 7.5/24 @ lip. Settings: AC rate 18, vT 450, FiO2 70%, PEEP 8. Pain level 0/10 and is currently bedrest; per progress notes that patient uses a wheelchair at baseline. Bed locked in lowest position, side rails up x2, call light within reach, and bed alarm on for patient safety. Right IJ TLC inserted on 11/01/19 running Levo @ 8. Cadena inserted on 11/01/19 for strict I/O. Skin: multiple issues see charting. Patient is negative COVID x2; previous positive. Will continue to round, reposition, and perform oral care prn. Pending trach/PEG with Dr. Slater on 11/16/19 @ 0900 per physician note. Consents from next of kin pending to be signed.
[2019-11-14] MEDS: fentaNYL Drip 2500mCg/250mlNS 250 ML IV SCH (20:02)
[2019-11-14] MEDS: CEFEPIME 2 GM in SODIUM CHL 0.9% 50 ML IV SCH (20:45)
[2019-11-14] MEDS: AMIODARONE HCL 200 MG TAB PO SCH (20:45)
--- NOTE | 2019-11-14 20:45 | NUR ---
Dr. Urban at bedside. FiO2 dropped to 60%.
[2019-11-15] VITALS (96 sets, daily range): BP systolic 0–157; BP diastolic 45–82
[2019-11-15] MEDS: InsuLIN REG 1unit/0.01ml Soln (100units/ml) SC SCH ×6 (00:26→20:00)
[2019-11-15] MEDS: ACCU-CHEK COMFORT CURVE STRIP VI SCH ×6 (00:28→20:00)
[2019-11-15] MEDS: VANCOMYCIN 1GM/250ML 250 ML IV SCH ×2 (04:18→17:29)
[2019-11-15 04:40] LABS: Basophils # (auto) 0.1 10 ^3/uL (0-0.2); Basophils % (auto) 0.4 % (0.0-2.0); Eosinophils # (auto) 0 10 ^3/uL (0-0.8); Lymphocytes # (auto) 1.2 10 ^3/uL (0.4-5.4); Lymphocytes % (auto) 6.8 % (10.0-50.0); Mean Corpuscular Hemoglobin 28.8 pg (28.0-32.0); Mean Corpuscular Hgb Conc. 32.4 g/dL (32.0-36.0); Monocytes # (auto) 1.9 10 ^3/uL (0-1.3); Monocytes % (auto) 10.8 % (0.0-12.0); Neutrophils # (auto) 14.6 10 ^3/uL (1.6-8.6); Platelet Count (auto) 168 10^3/uL (140-450); Red Blood Cells 4.16 10^6/uL (4.5-5.90); Red Cell Distribution Width 15.6 % (11.8-14.3); White Blood Cell 17.8 10^3/uL (4.4-10.8)
[2019-11-15 05:02] LABS: Calcium 8.5 mg/dL (8.5-10.1); Potassium 4.7 mmol/L (3.5-5.1)
[2019-11-15 05:04] LABS: BUN/Creatinine Ratio 47.2
[2019-11-15 05:30] LABS: INR 1.92 (0.9-1.15); Partial Thromboplastin Time 34.2 sec (23.64-32.05)
[2019-11-15] MEDS: MIDAZOLAM DRIP 50 mg/50mL 50 ML IV SCH (06:28)
[2019-11-15] MEDS: CEFEPIME 2 GM in SODIUM CHL 0.9% 50 ML IV SCH ×3 (06:28→22:00)
--- NOTE | 2019-11-15 07:30 | NUR ---
Opening Shift Note Assumed care of patient,intubated with sedation but awake, able to make needs known, communicate yes or no with gestures and head movements. No S/S of distress/SOB or pain. LT nare NGT clamped. Tracheostomy and PEG placement planned 11/15. See interventions for complete assessment. Bed locked on low position, side rails up x2, bed alarms on at all times, call delgado within reach, instructed on POC and to call for assist PRN, will continue to monitor for changes Q1hr and PRN.
--- NOTE | 2019-11-15 08:51 | NUR ---
Called Dr Lares's office in an attempt to relay PT and INR report. Spoke to office staff Irina and stated MD is not in yet.
--- NOTE | 2019-11-15 08:55 | NUR ---
Spoke to Dr Lares over the phone, informed of patient's PT 18.8 and INR 1.92. verbalized understanding and gave orders for FFP transfusion 0200 tomorrow morning and consult to Dr Sarabia. Orders read back and verified. Will carry out.
[2019-11-15] MEDS: DexAMETHasone SOD PHOS 10MG/1ML VIAL INJ IV SCH (09:24)
[2019-11-15] MEDS: ASCORBIC ACID 500 MG TAB PO SCH (09:24)
[2019-11-15] MEDS: PANTOPRAZOLE 40 MG/10 ML VIAL INJ IV SCH (09:24)
[2019-11-15] MEDS: CHOLECALCIFEROL (VITD3) 1,000UNIT=25mCg TAB PO SCH (09:24)
[2019-11-15] MEDS: FLUCONAZOLE 200MG/100ML 100 ML IV SCH (09:24)
[2019-11-15] MEDS: ZINC SULFATE 220mg CAP or TAB PO SCH (09:24)
--- NOTE | 2019-11-15 09:36 | NUR ---
Spoke to patient's daughter Jo-Ann over the phone, able to provide password. Updated on patient's status and POC, verbalized understanding. All questions and concerns addressed.
[2019-11-15] MEDS ORDERED: PHYTONADIONE (VIT K)10 MG/ML 1ML VIAL IV ONE (10:15)
--- NOTE | 2019-11-15 10:20 | NUR ---
Dr Vazquez at bedside, updated on patient's status. Patient seen and examined. Will carry out new orders.
--- NOTE | 2019-11-15 12:00 | NUR ---
Nutrition Followup Notes Wt: 73.3 kg Pt is now extubated with dysphagia and to have PEG put in tomorrow per RN. pt continues to be NPO Est energy needs BW 81 [id number] kcal (23-25 kcal/kg BW), Est protein 65-81g (0.8-1.0g/kg elevated RFTs). Will reassess prn. LABS: BUN 51 H, GLU 213 H GI: Pt had no BM today per RN doc BS: 12 high risk. Refer to wound assessment report for full details. PES: 1) Altered nutrition related lab values r.t current chronic medical condition aeb elev RFT severe hypoalb 2) Inadequate PO intake r.t current medical condition aeb pt`s with COVID and PO recorded < 50% Comments 1) If Pt is NPO >48 and TF is recommended Consider Glucerna 1.2 with a goal rate of 65 ml/hr. 2) Advance diet as medically feasible 3) Refer to CDE on DC. 4) Continue current plan of care
--- NOTE | 2019-11-15 12:54 | NUR ---
Dr Sarabia at bedside, updated on patient's status. Patient seen and examined. Will carry out new orders.
[2019-11-15 14:58] LABS: INR 1.52 (0.9-1.15); Partial Thromboplastin Time 28.7 sec (23.64-32.05)
--- NOTE | 2019-11-15 15:50 | NUR ---
Dr Lares at bedside, updated on patient's status. Patient seen and examined. Will carry out new orders.
--- NOTE | 2019-11-15 16:01 | NUR ---
Fibrinogen report still pending.
--- NOTE | 2019-11-15 16:06 | NUR ---
Fibrinogen level 440, Dr Sarabia informed.
[2019-11-15] MEDS: PROPOFOL 100 ML IV SCH (19:09)
[2019-11-15] MEDS: fentaNYL Drip 2500mCg/250mlNS 250 ML IV SCH (21:30)
[2019-11-15] MEDS: AMIODARONE HCL 200 MG TAB PO SCH (22:00)
[2019-11-16] VITALS (100 sets, daily range): BP systolic 84–183; BP diastolic 31–99
[2019-11-16 04:00] LABS: INR 1.07 (0.9-1.15)
[2019-11-16] MEDS: InsuLIN REG 1unit/0.01ml Soln (100units/ml) SC SCH ×6 (04:00→19:40)
[2019-11-16] MEDS: ACCU-CHEK COMFORT CURVE STRIP VI SCH ×6 (04:00→19:40)
[2019-11-16] MEDS: VANCOMYCIN 1GM/250ML 250 ML IV SCH ×2 (06:00→06:06)
[2019-11-16] MEDS: CEFEPIME 2 GM in SODIUM CHL 0.9% 50 ML IV SCH ×3 (06:07→21:56)
[2019-11-16] MEDS: MIDAZOLAM DRIP 50 mg/50mL 50 ML IV SCH (07:07)
--- NOTE | 2019-11-16 07:30 | NUR ---
Opening Shift Note Assumed care of patient, intubated, on sedation but awake. No S/S of distress/SOB or pain. LT nare NGT clamped, patient scheduled for Tracheostomy and PEG placement today. See interventions for complete assessment. Bed locked on low position, side rails up x2, bed alarms on at all times, call delgado within reach, instructed on POC and to call for assist PRN, will continue to monitor for changes Q1hr and PRN.
--- NOTE | 2019-11-16 08:00 | NUR ---
Dr Sarabia at bedside, updated on patient's status. Patient seen and examined. Will carry out new orders.
--- NOTE | 2019-11-16 09:15 | NUR ---
Dr Vazquez at bedside, updated on patient's status. Patient seen and examined. Will carry out new orders.
[2019-11-16] MEDS: DexAMETHasone SOD PHOS 10MG/1ML VIAL INJ IV SCH (09:32)
[2019-11-16] MEDS: FLUCONAZOLE 200MG/100ML 100 ML IV SCH (09:33)
[2019-11-16] MEDS: ZINC SULFATE 220mg CAP or TAB PO SCH (09:33)
[2019-11-16] MEDS: ASCORBIC ACID 500 MG TAB PO SCH (09:33)
[2019-11-16] MEDS: PANTOPRAZOLE 40 MG/10 ML VIAL INJ IV SCH ×2 (09:33→21:57)
[2019-11-16] MEDS: CHOLECALCIFEROL (VITD3) 1,000UNIT=25mCg TAB PO SCH (09:34)
--- NOTE | 2019-11-16 10:30 | NUR ---
Dr Lares at bedside, updated on patient's status. Patient seen and examined. Will carry out new orders.
--- NOTE | 2019-11-16 12:55 | NUR ---
This RN came back from lunch. Patient out of room to OR for Tracheostomy and PEG insertion.
[2019-11-16] MEDS ORDERED: ROCURONIUM 10MG/ML 10ML VIAL IV ONE (12:56)
[2019-11-16] MEDS ORDERED: fentaNYL CITRATE 100 MCG/2 ML VL ONE (13:00)
[2019-11-16] MEDS ORDERED: MIDAZOLAM HCL 1MG/1ML-2 ML VIAL ONE ×2 (13:00→13:47)
[2019-11-16] MEDS ORDERED: ceFAZolin 1GM/50ML 50 ML IV ONE (13:27)
--- NOTE | 2019-11-16 14:10 | NUR ---
Patient back to room s/p tracheostomy placement. Patient connected back to unit monitoring. Trache to vent. VS WNL. Xray done at bedside. Per Dr Meeks, patient needs to be sedated with Propofol for the next hour because patient was given paralytic. Will carry out and continue to monitor patient.
--- NOTE | 2019-11-16 14:15 | NUR ---
RT IJ TLC dressing change done with a sterile technique. Cleansed with chloraprep scrub/betadine. Bio-patch in place. Occlusive dressing applied. Patient tolerated well.
--- NOTE | 2019-11-16 14:20 | NUR ---
Minimal bleeding noted on tracheostomy site. Nat BREWER at bedside for change of dressing. Will continue to monitor.
[2019-11-16] MEDS: PROPOFOL 100 ML IV SCH (14:22)
--- NOTE | 2019-11-16 15:16 | NUR ---
Spoke to patient's daughter Jo-Ann over the phone. Updated on patient's status and POC, verbalized understanding. All questions and concerns addressed.
--- NOTE | 2019-11-16 15:30 | NUR ---
Sedation turned off.
--- NOTE | 2019-11-16 17:57 | NUR ---
Dr Urban at bedside, updated on patient's status. Patient seen and examined. Will carry out new orders.
--- NOTE | 2019-11-16 19:25 | NUR ---
Opening Shift Note Assumed care of patient, awake but non-verbal and confused, answerable to name only. Bed is in lowest position and locked. No S/S of distress/SOB or pain at this time. Board updated. Patient on continuous bedside pulse oximetry, EKG, and temperature montior. BP cuff secured to right forearm. Will continue to monitor for changes Q1hr and PRN.
[2019-11-16] MEDS: fentaNYL Drip 2500mCg/250mlNS 250 ML IV SCH ×2 (20:02→22:43)
--- NOTE | 2019-11-16 20:48 | NUR ---
Called and spoke to MD Rollins and notified him of elevated potassium of 5.2. No orders given.
--- NOTE | 2019-11-16 20:51 | NUR ---
Spoke to MD Lares and notified him that patient is not on any sedation at this time and that he appears to be in severe pain. He keeps attempting to reach his trach collar and pull on lines. Order received: Morphine 2 mg IV q 4 hrs PRN Severe pain. Order repeated, verified, and placed.
[2019-11-16] MEDS ORDERED: MORPHINE SULF INJ 2 MG/ML SYRINGE 1ML IV PRN (21:00)
[2019-11-16] MEDS: AMIODARONE HCL 200 MG TAB PO SCH (21:56)
--- NOTE | 2019-11-16 22:46 | NUR ---
Fentanyl 25 mcg/min started at this time. Patient is very agitated and keeps trying to pull at his neck, tracheostomy site, and IJ line. Patient is not, however, breathing against ventilator. Will continue to assess.
[2019-11-17] VITALS (105 sets, daily range): BP systolic 64–163; BP diastolic 14–89
[2019-11-17] MEDS: InsuLIN REG 1unit/0.01ml Soln (100units/ml) SC SCH ×6 (00:20→22:25)
[2019-11-17] MEDS: ACCU-CHEK COMFORT CURVE STRIP VI SCH ×6 (00:21→20:00)
[2019-11-17] MEDS: PROPOFOL 100 ML IV SCH (02:00)
--- NOTE | 2019-11-17 02:00 | NUR ---
Fentanyl increased to 75 mcg/min and Propofol started at 5 mcg/kg/min. Levophed started at 2 mcg/min. BP is 124/52.
--- NOTE | 2019-11-17 02:25 | NUR ---
Levophed stopped at this time. Patient's HR has risen to 132. Rhythm is sinus tachycardia.
--- NOTE | 2019-11-17 02:26 | NUR ---
Respiratory note: TRACH CARE PERFORMED WITH NO COMPLICATIONS NOTED. SUTURES REMAIN IN PLACE, MINIMAL BLEEDING NOTED FROM FRESH SITE, CLEANED INNER CANNULA AND CHANGE TRACH TIES. PT REMAINS ON MECHANICAL VENTILATOR AT THIS TIME. SPO2 98%, RR 18, HR 109. BS CLR/DIM APICES AND DIM AT BASES.
--- NOTE | 2019-11-17 02:35 | NUR ---
Fentanyl and Propofol stopped at this time. BP decreased to 64/14 with MAP of 30.
--- NOTE | 2019-11-17 03:10 | NUR ---
BP has risen to 100/42 with HR of 72. Will continue to assess.
--- NOTE | 2019-11-17 03:24 | NUR ---
Complete linen change and bed bath performed. Patient tolerated well.
--- NOTE | 2019-11-17 04:35 | NUR ---
Attempted to restart Fentanyl and Propofol at 0435. BP was 122/61, HR: 55. By 0635, patient's BP had dropped to 79/39. Both medications stopped immediately. Will continue to assess.
--- NOTE | 2019-11-17 05:00 | NUR ---
BP has risen to 116/51. Will continue to assess.
[2019-11-17 05:19] LABS: Basophils # (auto) 0 10 ^3/uL (0-0.2); Basophils % (auto) 0.1 % (0.0-2.0); Eosinophils # (auto) 0 10 ^3/uL (0-0.8); Hematocrit 29.3 % (41.0-53.0); Hemoglobin 9.6 g/dL (13.5-17.5); Lymphocytes # (auto) 0.9 10 ^3/uL (0.4-5.4); Lymphocytes % (auto) 5.3 % (10.0-50.0); Mean Corpuscular Hemoglobin 29.3 pg (28.0-32.0); Mean Corpuscular Hgb Conc. 32.7 g/dL (32.0-36.0); Mean Corpuscular Volume 89.7 fL (80.0-100.0); Monocytes # (auto) 1.6 10 ^3/uL (0-1.3); Monocytes % (auto) 9.5 % (0.0-12.0); Neutrophils # (auto) 14.2 10 ^3/uL (1.6-8.6); Neutrophils % (auto) 85.1 % (37.0-80.0); Platelet Count (auto) 88 10^3/uL (140-450); Red Blood Cells 3.27 10^6/uL (4.5-5.90); Red Cell Distribution Width 15.5 % (11.8-14.3); White Blood Cell 16.7 10^3/uL (4.4-10.8)
[2019-11-17 05:39] LABS: Potassium 4.4 mmol/L (3.5-5.1)
[2019-11-17 05:49] LABS: Calcium 8.7 mg/dL (8.5-10.1)
--- NOTE | 2019-11-17 06:14 | NUR ---
Spoke to MD Lares and notified him of patient continuing to attempt to pull on his tracheostomy despite pain medication administration, attempted restart of sedation, and reorientation/ distraction. MD Ordered Medical-surgical behavioral restraint over phone. Order read back to physician and verified. Patient now restrained with soft restraint/ mitten. Patient's right wrist is now restrained and secured to non-moveable part of bedframe. Skin assessment performed; skin WNL, warm, regular pulses felt. Will continue to assess.
[2019-11-17] MEDS: CEFEPIME 2 GM in SODIUM CHL 0.9% 50 ML IV SCH ×3 (06:48→21:58)
--- NOTE | 2019-11-17 07:28 | NUR ---
Report given to BRIANNA Almanza. Patient still agitated and trying to reach his trach collar, despite restraint to right wrist.
--- NOTE | 2019-11-17 08:00 | NUR ---
AM ASSESSMENT COMPLETED AWAKE ALERT, FOLLOWING SIMPLE COMMANDS, ANSWERING SIMPLE YES AND NO QUESTIONS. PT HAS A SOFT WRIST RESTRAINT TO RT WRIST PT WAS ATTEMPTING TO PULL ON LINES AND FRESHLY NEW PLACED TRACH. PT NOT SEDATED D/T HYPOTENSION AND NOT BEING ABLE TO TOLERATE LEVOPHED FOR HYPOTENSION D/T TACHYCARDIA PER REPORT RECEIVED FROM OFF GOING SHIFT REPORT RN. CURRENTLY VSS, PT NOT ON ANY DISTRESS. PT AWAITING FOR A PEG TUBE PLACEMENT SO HE CAN BE TRANSFERRED TO [place] FOR RESIDENTIAL CARE. ORAL CARE PROVIDED. SKIN CHECKED. PT HAS MULTIPLE SKIN ISSUES REFER TO SKIN FLOW SHEET.ORAL CARE PROVIDED PER VAP PROTOCOL. REPOSITIONED FOR COMFORT.
[2019-11-17] MEDS: CHOLECALCIFEROL (VITD3) 1,000UNIT=25mCg TAB PO SCH (10:00)
[2019-11-17] MEDS: ZINC SULFATE 220mg CAP or TAB PO SCH (10:00)
[2019-11-17] MEDS: ASCORBIC ACID 500 MG TAB PO SCH (10:00)
[2019-11-17] MEDS: FLUCONAZOLE 200MG/100ML 100 ML IV SCH ×2 (10:10→11:30)
[2019-11-17] MEDS: PANTOPRAZOLE 40 MG/10 ML VIAL INJ IV SCH ×2 (10:10→22:26)
[2019-11-17] MEDS: DexAMETHasone SOD PHOS 10MG/1ML VIAL INJ IV SCH (10:10)
--- NOTE | 2019-11-17 10:20 | NUR ---
DR. JACQUE BANUELOS ON PT. . WANTS ME TO CALL PT'S DAUGHTER AND UPDATE HER ON PT'S CONDITION. HE ALSO WANTS TO CONSULT DR. LOCK FOR PEG TUBE PLACEMENT.
--- NOTE | 2019-11-17 11:41 | NUR ---
Nutrition Followup Notes Wt: 788.8 kg Pt s/p trach and to have PEG put in per RN. pt continues to be NPO with no new diet orders Est energy needs BW 81 [id number] kcal (23-25 kcal/kg BW), Est protein 65-81g (0.8-1.0g/kg elevated RFTs). Will reassess prn. LABS: BUN 44 H GI: Pt had 2 BM 10/25 per RN doc BS: 12 high risk. Refer to wound assessment report for full details. PES: 1) Altered nutrition related lab values r.t current chronic medical condition aeb elev RFT severe hypoalb 2) Inadequate PO intake r.t current medical condition aeb pt`s with COVID and PO recorded < 50% Comments 1) If Pt is NPO >48 and TF is recommended Consider Glucerna 1.2 with a goal rate of 65 ml/hr. 2) Advance diet as medically feasible 3) Refer to CDE on DC. 4) Continue current plan of care
--- NOTE | 2019-11-17 13:38 | NUR ---
UPDATED PT'S DAUGHTER VINICIUS. SHE REQUESTED TO SPEAK TO DR. SANTILLAN. I TOLD HER, I'LL NOTIFY PHYSICIAN. I TEXTED AND RELATED PT'S DAUGHTER'S MESSAGE. PT IS PENDING A PEG TUBE PLACEMENT TO BE TRANSFERRED TO [facility].
--- NOTE | 2019-11-17 14:22 | NUR ---
DR. LOCK CALLED BACK AND STATES HE CAN BE RE-CONSULTED FOR PEG TUBE PLACEMENT ONCE OR STARTS DOING ELECTIVE CASE IN ONE OR 2 WEEKS. I TOLD HIM I'LL NOTIFY DR. SANTILLAN.
--- NOTE | 2019-11-17 14:25 | NUR ---
I NOTIFIED DR. SANTILLAN THAT DR. LOCK CANNOT PLACE PEG TUBE UNTIL ONE TO 2 WEEKS FROM NOW D/T COVID 19. ORDERED NGT PLACEMENT AND TF PER DIETARY RECOMMENDATIONS.
[2019-11-17] MEDS ORDERED: VANCOMYCIN 1GM/250ML 250 ML IV ONE (15:00)
--- NOTE | 2019-11-17 15:14 | NUR ---
RT NARE 14 FR NGT INSERTED ON FIST ATTEMPT . SECURED AT ANA 60. PLACEMENT VERIFIED BY INJECTING AIR INTO STOMACH. PLACEMENT WILL BE VERIFIED BY X-RAY BEFORE RE-STARTING TF.
--- NOTE | 2019-11-17 15:19 | NUR ---
NOTIFIED RADIOLOGY OF CXR ORDER AND NGT STATUS.
--- NOTE | 2019-11-17 15:27 | NUR ---
X-RAY TAKEN AT BED SIDE AT THIS TIME
--- NOTE | 2019-11-17 15:30 | NUR ---
NGT IN PLACE PER X-RAY FINDINGS
--- NOTE | 2019-11-17 15:50 | NUR ---
Respiratory note: TRACH CARE DONE STOMA SITE CLEANED, INNER CANNULA CLEANED, DRAIN SPONGE CHANGED STOMA SITE BLEEDING, SUTURES IN PLACE.
--- NOTE | 2019-11-17 16:20 | NUR ---
STARTED ON TF GLUCERNA AT 30 ML/HR VIA NGT. AFTER NGT PLACEMENT WAS VERIFIED BY X-RAY.
--- NOTE | 2019-11-17 18:00 | NUR ---
REPOSITIONED FOR COMFORT.
--- NOTE | 2019-11-17 19:45 | NUR ---
REPORT GIVEN TO BRIANNA COULTER FROM REGISTRY.
[2019-11-17] MEDS: AMIODARONE HCL 200 MG TAB PO SCH (22:26)
[2019-11-18] VITALS (93 sets, daily range): BP systolic 72–170; BP diastolic 41–84
[2019-11-18] MEDS: InsuLIN REG 1unit/0.01ml Soln (100units/ml) SC SCH ×6 (04:00→20:00)
[2019-11-18] MEDS: ACCU-CHEK COMFORT CURVE STRIP VI SCH ×6 (04:00→20:00)
[2019-11-18] MEDS: CEFEPIME 2 GM in SODIUM CHL 0.9% 50 ML IV SCH ×3 (06:05→22:00)
[2019-11-18] MEDS: PANTOPRAZOLE 40 MG/10 ML VIAL INJ IV SCH ×2 (09:14→22:00)
[2019-11-18] MEDS: ASCORBIC ACID 500 MG TAB PO SCH (09:15)
[2019-11-18] MEDS: FLUCONAZOLE 200MG/100ML 100 ML IV SCH ×2 (09:15→12:00)
[2019-11-18] MEDS: DexAMETHasone SOD PHOS 10MG/1ML VIAL INJ IV SCH (09:15)
[2019-11-18] MEDS: AMIODARONE HCL 200 MG TAB PO SCH (09:16)
[2019-11-18] MEDS: CHOLECALCIFEROL (VITD3) 1,000UNIT=25mCg TAB PO SCH (09:28)
[2019-11-18] MEDS: ZINC SULFATE 220mg CAP or TAB PO SCH (09:28)
--- NOTE | 2019-11-18 11:22 | NUR ---
CONTACTED DR SANTILLAN RE: PATIENT STABILITY TO TRANSFER - STATES PATIENT OKAY TO TRANSFER TO [facility] - CALL PLACED TO ALONDRA IN CASE MANAGEMENT
[2019-11-18 11:43] LABS: Basophils # (auto) 0 10 ^3/uL (0-0.2); Basophils % (auto) 0.1 % (0.0-2.0); Eosinophils # (auto) 0 10 ^3/uL (0-0.8); Hematocrit 28.7 % (41.0-53.0); Hemoglobin 9.4 g/dL (13.5-17.5); Lymphocytes # (auto) 0.4 10 ^3/uL (0.4-5.4); Lymphocytes % (auto) 2.3 % (10.0-50.0); Mean Corpuscular Hemoglobin 29.1 pg (28.0-32.0); Mean Corpuscular Hgb Conc. 32.6 g/dL (32.0-36.0); Mean Corpuscular Volume 89.4 fL (80.0-100.0); Monocytes % (auto) 5.5 % (0.0-12.0); Neutrophils # (auto) 16.5 10 ^3/uL (1.6-8.6); Neutrophils % (auto) 92.1 % (37.0-80.0); Nucleated Red Blood Cells % 0.1 %; Platelet Count (auto) 65 10^3/uL (140-450); Red Blood Cells 3.21 10^6/uL (4.5-5.90); Red Cell Distribution Width 16.4 % (11.8-14.3)
--- NOTE | 2019-11-18 11:45 | NUR ---
SPOKE TO ALONDRA IN CASE MANAGEMENT RE: DR JACQUE SPARKS FOR PATIENT TRANSFER TO [facility] - STATES THAT PATIENT MUST BE CONSIDERED STABLE AND NOT OKAY FOR TRANSFER. MANAGER ANALYSIS INFORMED MD AND SLACK LINE YARDER THAT PATIENT HAS HAD SOFT RT WRIST RESTRAINT IN PLACE. ALONDRA STATES THAT RESTRAINT MUST BE OFF X 24 HOURS PRIOR TO TRANSFER TO [facility] - MANAGER ANALYSIS INFORMED ALONDRA THAT RESTRAINT WAS REMOVED AT 1100 TODAY.
[2019-11-18 12:04] LABS: Calcium 8.7 mg/dL (8.5-10.1)
[2019-11-18 12:06] LABS: BUN/Creatinine Ratio 49.4
--- NOTE | 2019-11-18 12:22 | NUR ---
PLACED TRACH STAY ON PT.
[2019-11-18] MEDS: VANCOMYCIN 1GM/250ML 250 ML IV SCH (17:00)
--- NOTE | 2019-11-18 17:57 | NUR ---
WOUND CARE NOTE: Wound care in to see patient for skin integrity monitoring. Patient continue resting in ICU bed in Rm. 106. He's on vent via trach. Patient appears to be in no pain using [place] Faces Pain Scale. His Fabián score is 12. Skin assessment done with the assistance of patient' s nurse, BRIANNA York. Patient's pressure injury to Rt buttocks looks much improved and display pink scar tissue with pink, blanchable surrounding skin. Susan care given, applied Z Guard cream. patient's L heel noted with 1.5x2.8cm non-blanchable redness/thin brown scab with pink surrounding skin, are is clean and dry, left open to air. Photograph of mentioned skin issue are taken for reference. Repositioned patient for comfort facing his Lt side, redistributed pressure points with pillows. RECOMMENDATION: Continuation of all wound care orders prescribed by MD, continue with skin/wound plan of care, continue monitoring by wound care while patient is hospitalized. Addendum: 11/18/19 at 1906 by Dianne Redd RN Amended: Links added.
[2019-11-18] MEDS: PROPOFOL 100 ML IV SCH (19:09)
[2019-11-18] MEDS: fentaNYL Drip 2500mCg/250mlNS 250 ML IV SCH (20:02)
[2019-11-19] VITALS (47 sets, daily range): BP systolic 83–147; BP diastolic 47–87
[2019-11-19] MEDS: ACCU-CHEK COMFORT CURVE STRIP VI SCH ×6 (04:00→20:00)
[2019-11-19] MEDS: InsuLIN REG 1unit/0.01ml Soln (100units/ml) SC SCH ×6 (04:00→20:00)
[2019-11-19] MEDS: CEFEPIME 2 GM in SODIUM CHL 0.9% 50 ML IV SCH ×3 (05:27→21:56)
--- NOTE | 2019-11-19 08:00 | NUR ---
AM ASSESSMENT COMPLETED AWAKE ALERT, FOLLOWING SIMPLE COMMANDS. ABLE TO MOVE RT ARM AND RT LEG. PT HAS A HX OF A STROKE WITH DEFICITS TO LT EXTREMITIES. REMAINS ON VENTILATOR VIA TRACH. TRACH 8.0 SHILEY REMAINS CLEAN AND DRY WITH SUTURES IN PLACE. TRACH DRESSING CDI WITH MINIMAL SEROUS PINK DRAINAGE. PT OXYGENATING WELL. MINIMAL TRACHEAL AND ORAL SECRETIONS. LS CTA. SR NO ECTOPY, VSS. AFEBRILE. SKIN IMPROVING. PT BEEN REPOSITIONED EVERY 2 HOURS. FC WITH SECUREMENT DEVICE IN PLACE PT HAS A FOAM DRESSING IN [place] PROTECTING [address] LT HEEL DTI COVERED WITH FOAM DRESSING AND ELEVATED OFF AIR MATRES WITH PILLOWS. ORAL CARE PROVIDED. EDUCATED PT ON POC. PT VERBALIZED UNDERSTANDINGS BY NODDING HEAD.
--- NOTE | 2019-11-19 09:20 | NUR ---
Respiratory note: PT PLACED ON CPAP TRIAL. PT TOLERATING CHANGE WELL. WILL CONTINUE TO MONITOR PT. RN MADE AWARE.
[2019-11-19] MEDS: DexAMETHasone SOD PHOS 10MG/1ML VIAL INJ IV SCH (10:00)
--- NOTE | 2019-11-19 10:00 | NUR ---
SKIN INTEGRITY REPOSITIONED FOR COMFORT WITH OSWALDO STERLING'S ASSISTANCE. ORAL CARE PROVIDED PER VAP PROTOCOL. SKIN ASSESSED AT THIS TIME.
[2019-11-19] MEDS: PANTOPRAZOLE 40 MG/10 ML VIAL INJ IV SCH ×2 (10:29→21:56)
[2019-11-19] MEDS: ASCORBIC ACID 500 MG TAB PO SCH (10:29)
[2019-11-19] MEDS: ZINC SULFATE 220mg CAP or TAB PO SCH (10:29)
[2019-11-19] MEDS: CHOLECALCIFEROL (VITD3) 1,000UNIT=25mCg TAB PO SCH (10:30)
[2019-11-19] MEDS: FLUCONAZOLE 200MG/100ML 100 ML IV SCH ×2 (10:30→12:15)
--- NOTE | 2019-11-19 10:35 | NUR ---
CPAP TRIAL TERMINATED DUE TO INCREASED RR TO 48, AND PT UNABLE TO FOLLOW COMMANDS ADEQUATELY. RN AWARE. WILL CONTINUE TO MONITOR PT.
[2019-11-19] MEDS: VANCOMYCIN 1GM/250ML 250 ML IV SCH (10:38)
--- NOTE | 2019-11-19 11:10 | NUR ---
Nutrition Followup Notes Wt: 82.0 kg Pt s/p trach and to have PEG put in per RN. pt with Glucerna 1.2 ordered at 65 ml/hr. Pt with 780 ml provided 8/ per RN note so far. Will continue to monitor TF rate and residuals. Est energy needs BW 81 [id number] kcal (23-25 kcal/kg BW), Est protein 65-81g (0.8-1.0g/kg elevated RFTs). Will reassess prn. LABS: BUN 43H, GLUC 171H, Alb 1.8L GI: Pt had 2 BM 10/25 per RN doc BS: 12 high risk. Refer to wound assessment report for full details. PES: 1) Altered nutrition related lab values r.t current chronic medical condition aeb elev RFT severe hypoalb 2) Inadequate PO intake r.t current medical condition aeb pt`s with COVID and PO recorded < 50% Comments 1) Continue Glucerna 1.2 with a goal rate of 65 ml/hr. 2) Advance diet as medically feasible 3) Refer to CDE on DC. 4) Continue current plan of care
--- NOTE | 2019-11-19 16:00 | NUR ---
DR. AGUILAR ROUNDING ON PT. UPDATED MD ON PT'S CONDITION, CPAP TRIAL , PT AWAITING FOR PEG TUBE PLACEMENT AND [facility] TRANSFER FOR [facility]. NO NEW ORDERS RECEIVED.
--- NOTE | 2019-11-19 16:16 | NUR ---
ENDOCRINE/ SKIN INTEGRITY/ INFECTION CONTROL BG 211 PT RECEIVED 8 UNITS OF REGULAR INSULIN FOR COVERAGE. REPOSITIONED FOR COMFORT WITH BRIANNA CORONADO'S ASSISTANCE. ORAL CARE PROVIDED PER VAP PROTOCOL.
--- NOTE | 2019-11-19 18:54 | NUR ---
REQUESTED A CONSULTATION FOR [facility] PER DR. SANTILLAN, PT CAN HAVE PEG TUBE INSERTED AT [facility].
--- NOTE | 2019-11-19 19:20 | NUR ---
REPORT GIVEN TO BULK SEALER OPERATOR RN.
[2019-11-19] MEDS: AMIODARONE HCL 200 MG TAB PO SCH (21:55)
[2019-11-20] VITALS (65 sets, daily range): BP systolic 83–152; BP diastolic 44–83
[2019-11-20] MEDS: InsuLIN REG 1unit/0.01ml Soln (100units/ml) SC SCH ×6 (04:00→20:48)
[2019-11-20] MEDS: ACCU-CHEK COMFORT CURVE STRIP VI SCH ×6 (04:00→20:49)
[2019-11-20] MEDS: VANCOMYCIN 1GM/250ML 250 ML IV SCH ×2 (05:00→23:33)
[2019-11-20] MEDS: CEFEPIME 2 GM in SODIUM CHL 0.9% 50 ML IV SCH ×3 (06:00→21:32)
--- NOTE | 2019-11-20 09:09 | NUR ---
education program coordinator 11/18/2019 Received a page from Ana Maria at [facility] stating she has a bed for patient. Called ICU and spoke with Chela REED she informed me patient has to be cleared by 3 MD's and patient is on restraints. Per Chela she discontinued restraint and will page me when patient is ready to be discharged. Addendum: 11/20/19 at 0912 by Ely BARRIOS Amended: Links added.
[2019-11-20] MEDS: fentaNYL Drip 2500mCg/250mlNS 250 ML IV SCH (09:14)
[2019-11-20] MEDS: PROPOFOL 100 ML IV SCH (09:14)
[2019-11-20] MEDS: ZINC SULFATE 220mg CAP or TAB PO SCH (10:25)
[2019-11-20] MEDS: FLUCONAZOLE 200MG/100ML 100 ML IV SCH ×2 (10:25→11:00)
[2019-11-20] MEDS: PANTOPRAZOLE 40 MG/10 ML VIAL INJ IV SCH ×2 (10:25→21:30)
[2019-11-20] MEDS: CHOLECALCIFEROL (VITD3) 1,000UNIT=25mCg TAB PO SCH (10:26)
[2019-11-20] MEDS: ASCORBIC ACID 500 MG TAB PO SCH (10:26)
--- NOTE | 2019-11-20 10:30 | NUR ---
BEDSIDE Dr. Lares bedside. No new orders received.
[2019-11-20] MEDS: DexAMETHasone SOD PHOS 4 MG/1ML SDV INJ IV SCH (11:00)
--- NOTE | 2019-11-20 14:01 | NUR ---
D/C planning Faxed updated clinical information to [facility]. Placed follow up call to [facility] with [facility]. Per [facility] bed as been requested and is currently pending. [facility] is ON WILL CALL ).
--- NOTE | 2019-11-20 15:43 | NUR ---
COMPLETE LINEN CHANGE/ BM Small BM. Complete linen change, patient tolerated well.
[2019-11-20] MEDS: AMIODARONE HCL 200 MG TAB PO SCH (21:31)
[2019-11-20] MEDS: ACETAMINOPHEN 500 MG TAB PO PRN (23:37)
[2019-11-21] VITALS (25 sets, daily range): BP systolic 102–153; BP diastolic 51–75
[2019-11-21] MEDS: InsuLIN REG 1unit/0.01ml Soln (100units/ml) SC SCH ×4 (00:13→17:58)
[2019-11-21] MEDS: ACCU-CHEK COMFORT CURVE STRIP VI SCH ×4 (03:00→17:56)
[2019-11-21] MEDS: CEFEPIME 2 GM in SODIUM CHL 0.9% 50 ML IV SCH ×2 (05:30→14:00)
--- NOTE | 2019-11-21 06:28 | NUR ---
Respiratory note: RECEIVED PATIENT ON V7 V200 VENT TRACHED WITH AN 8 SHILEY, SECURED VIA TRACH TIE, AND MECHANICALLY VENTILATED WITH THE CHARTED SETTINGS. SPO2 98%, LUNG SOUNDS COARSE T/O, SMALL AMOUNT OF THICK CLOUDY SECRETIONS WHEN SUCTIONED. SKIN IS WARM/DRY TO THE TOUCH AND IS CLEAN/CLEAR NEAR STOMA SITE. THERE IS A NGT PLACED IN THE RIGHT NARE. PITTING EDEMA NOTED IN LEFT UPPER EXTREMITY, NO EDEMA NOTED ELSEWHERE. PATIENT IS NOT SEDATED AND APPEARS TO BE UNCOMFORTABLE, IS BREATHING WELL OVER SET RATE, AND HAS PERIODIC BREATH STACKING. NO NEW AM CXR TO REPORT. VENT PLUGGED INTO RED OUTLET AND ALL ALARMS ARE SET AND AUDIBLE. WILL CONTINUE TO ASSESS PATIENT WELL VENTILATOR FUNCTION. TWO TRACH'S AT BEDSIDE AND OBTURATOR IS AT HEAD OF BED FOR EMERGENCY.
--- NOTE | 2019-11-21 06:45 | NUR ---
TOLERATING VENTILATORY SETTING NO RESP DISTRESS OVERNIGHT VSS, FEBRILE TMAX 101.5 TYLENOL GIVEN AND ICE COLD PACKS DONE, WENT DOWN TO T-99.0, TOLERATING TUBE FEEDING HAD BM X1. CONTINUE CARE.
--- NOTE | 2019-11-21 07:45 | NUR ---
OPENING Report received from Kristin GOLDSMITH RN. Care initiated and initial assessment complete.
--- NOTE | 2019-11-21 09:45 | NUR ---
BEDSIDE Dr. Lares bedside. No new orders received.
[2019-11-21] MEDS: PROPOFOL 100 ML IV SCH (09:56)
[2019-11-21] MEDS: fentaNYL Drip 2500mCg/250mlNS 250 ML IV SCH (09:56)
[2019-11-21] MEDS: FLUCONAZOLE 200MG/100ML 100 ML IV SCH ×2 (10:00→11:17)
[2019-11-21] MEDS ORDERED: DEXTROSE (50%) 50ML SYRG IV PRN (10:00)
[2019-11-21] MEDS: ZINC SULFATE 220mg CAP or TAB PO SCH (10:00)
[2019-11-21] MEDS: ASCORBIC ACID 500 MG TAB PO SCH (10:00)
[2019-11-21] MEDS: PANTOPRAZOLE 40 MG/10 ML VIAL INJ IV SCH (10:00)
[2019-11-21] MEDS: CHOLECALCIFEROL (VITD3) 1,000UNIT=25mCg TAB PO SCH (10:00)
[2019-11-21] MEDS ORDERED: INSULIN LANTUS (GLARGINE) 1 /0.01ml (100units/ml) SC SCH (10:00)
--- NOTE | 2019-11-21 10:00 | NUR ---
Spoke with Nery at [facility] and gave authorization for [facility] #[id number] and transport authorization #[id number], for the patient to be transferred.
--- NOTE | 2019-11-21 10:54 | NUR ---
Nutrition Followup Notes Wt: 82.0 kg Pt s/p trach and to have PEG put in per RN. pt with Glucerna 1.2 ordered at 65 ml/hr. Pt with 780 ml provided 8/4 per RN note so far. Will continue to monitor TF rate and residuals. Est energy needs BW 81 [id number] kcal (23-25 kcal/kg BW), Est protein 65-81g (0.8-1.0g/kg elevated RFTs). Will reassess prn. LABS: BUN 43H, Alb 1.8L, GLUC 254H GI: Pt had 1 BM 8/4 per RN doc BS: 12 high risk. Refer to wound assessment report for full details. PES: 1) Altered nutrition related lab values r.t current chronic medical condition aeb elev RFT severe hypoalb 2) Inadequate PO intake r.t current medical condition aeb pt`s with COVID and PO recorded < 50% Comments 1) Continue Glucerna 1.2 with a goal rate of 65 ml/hr. 2) Advance diet as medically feasible 3) Refer to CDE on DC. 4) Continue current plan of care
[2019-11-21] MEDS: DexAMETHasone SOD PHOS 4 MG/1ML SDV INJ IV SCH (11:17)
--- NOTE | 2019-11-21 12:51 | NUR ---
D/C Planning Placed call to Marlyn colette [facility] at 11:36am advising her patient health plan has approved transfer. Per [facility] with [facility] she has requested a bed at their ICU unit. Pending accepting bed and following doctor. [facility] is ON WILL CALL.
--- NOTE | 2019-11-21 16:49 | NUR ---
re-assessment Per Marlyn at [facility] patient has been accepted to [facility] ICU bed 5 and the accepting MD is at [facility]. I have provided Elenita REED with bed assignment and number to call report to [phone]. Vy will set up transport for 7pm tonight post discharge. Addendum: 11/21/19 at 1652 by Ely BARRIOS Amended: Links added.
--- NOTE | 2019-11-21 16:57 | NUR ---
re-assessment I have notified patients daughter Jo-Ann of transfer to [facility]. Jo-Ann verbalized understanding and agreed to discharge plan to [facility]. Addendum: 11/21/19 at 1659 by Ely BARRIOS Amended: Links added.
[2019-11-21] MEDS: VANCOMYCIN 1GM/250ML 250 ML IV SCH (17:00)
--- NOTE | 2019-11-21 17:00 | NUR ---
UPDATED FAMILY Spoke to Jo-Ann, updated on transfer.
--- NOTE | 2019-11-21 18:31 | NUR ---
REPORT GIVEN Report given to Sarah at [facility].
--- NOTE | 2019-11-21 20:21 | NUR ---
2015 [facility] came report given to BRIANNA Brewster transport analyst
== END 2019-11-21 20:15 | disposition short-term general hospital (02) | DRG 5 ==
LOC: ER 09:06 → EDBD 09:06 → TELE 09:07 → ICU WEST 10-26 03:55 → UNDODISIN 11-21 20:15
PROVIDERS: ADMIT Internal Medicine; ATTEND Internal Medicine
PROC: 02HV33Z Insertion of Infusion Device into Superior Vena Cava, Percutaneous Approach (ICD-10-PCS; principal; 2019-11-01)
PROC: 5A1955Z Respiratory Ventilation, Greater than 96 Consecutive Hours (ICD-10-PCS; 2019-11-01)
PROC: 0BH17EZ Insertion of Endotracheal Airway into Trachea, Via Natural or Artificial Opening (ICD-10-PCS; 2019-11-01)
PROC: 0BH17EZ Insertion of Endotracheal Airway into Trachea, Via Natural or Artificial Opening (ICD-10-PCS; 2019-11-13)
PROC: 5A1955Z Respiratory Ventilation, Greater than 96 Consecutive Hours (ICD-10-PCS; 2019-11-13)
PROC: 0DJ08ZZ Inspection of Upper Intestinal Tract, Via Natural or Artificial Opening Endoscopic (ICD-10-PCS; 2019-11-16)
PROC: 0B110F4 Bypass Trachea to Cutaneous with Tracheostomy Device, Open Approach (ICD-10-PCS; 2019-11-16)
PROC: 30233K1 Transfusion of Nonautologous Frozen Plasma into Peripheral Vein, Percutaneous Approach (ICD-10-PCS; 2019-11-16)
DX: A41.89 Other specified sepsis (principal); U07.1 COVID-19; J96.01 Acute respiratory failure with hypoxia; E11.21 Type 2 diabetes mellitus with diabetic nephropathy; N39.0 Urinary tract infection, site not specified; J98.11 Atelectasis; G93.41 Metabolic encephalopathy; G20 Parkinson's disease; I49.3 Ventricular premature depolarization; N17.0 Acute kidney failure with tubular necrosis; N18.9 Chronic kidney disease, unspecified; E11.22 Type 2 diabetes mellitus with diabetic chronic kidney disease; E55.9 Vitamin D deficiency, unspecified; E87.0 Hyperosmolality and hypernatremia; I48.0 Paroxysmal atrial fibrillation; J12.89 Other viral pneumonia; R65.21 Severe sepsis with septic shock; E43 Unspecified severe protein-calorie malnutrition; R13.10 Dysphagia, unspecified; K29.70 Gastritis, unspecified, without bleeding; Z99.11 Dependence on respirator [ventilator] status; J90 Pleural effusion, not elsewhere classified; E11.65 Type 2 diabetes mellitus with hyperglycemia; E87.4 Mixed disorder of acid-base balance; F02.80 Dementia in other diseases classified elsewhere, unspecified severity, without behavioral disturbance, psychotic disturbance, mood disturbance, and anxiety; F32.9 Major depressive disorder, single episode, unspecified; B96.5 Pseudomonas (aeruginosa) (mallei) (pseudomallei) as the cause of diseases classified elsewhere; B95.2 Enterococcus as the cause of diseases classified elsewhere; B96.4 Proteus (mirabilis) (morganii) as the cause of diseases classified elsewhere; B96.89 Other specified bacterial agents as the cause of diseases classified elsewhere; I12.9 Hypertensive chronic kidney disease with stage 1 through stage 4 chronic kidney disease, or unspecified chronic kidney disease; I69.354 Hemiplegia and hemiparesis following cerebral infarction affecting left non-dominant side; Z93.0 Tracheostomy status; Z87.19 Personal history of other diseases of the digestive system; Z86.69 Personal history of other diseases of the nervous system and sense organs; T73.1XXA Deprivation of water, initial encounter; Z79.4 Long term (current) use of insulin
CPT/HCPCS: 31500; 36415; 36600; 71045; 76775; 76937; 80048; 80053; 80202; 81001; 82306; 82565; 82570; 82728; 82805; 82962; 83036; 83605; 83735; 83880; 83970; 84156; 84300; 84443; 84484; 85007; 85025; 85027; 85379; 85384; 85610; 85730; 86850; 86900; 86901; 87040; 87070; 87077; 87081; 87086; 87186; 87205; 87804; 87880; 92610; 93005; 93306; 94002; 94003; 94660; 99291; A4605; A4618; C9113; G0378; J0330; J0690; J0696; J1100; J1450; J1815; J2185; J2250; J2543; J2704; J3430; J3480; J3490